=== PATIENT | male | born 1945 | race Caucasian/White ===

== ENCOUNTER 2019-11-01 20:32 | Emergency (ER) | payer BC ==
[~2019-11-01] VITALS: Ht 172.7 cm; Wt 78.9 kg
[2019-11-01 20:46] VITALS: BP_SYST 147
--- NOTE | 2019-11-01 20:50 | NUR ---
Patient triaged and placed in waiting room. VSS and patient appears in no acute distress at this time. Accompanied by , awaiting available bed, and MD notified of need for MSE.
--- NOTE | 2019-11-01 20:53 | NUR ---
ER Dr. FELDER at bedside examining patient.
--- NOTE | 2019-11-01 23:00 | NUR ---
PT A&O X4 C/O OF RIGHT WRIST PAIN AND SWELLING AFTER FALLING BACK ONTO HIS WRIST EARLIER THIS MORNING AT 0830. PT STATES HE WAS GARDENING AND PULLED SOME WEEDS WHEN HE PULLED HARD AND FELL BACKWARDS ONTO HIS WRIST. PT DENIES HITTING HIS HEAD OR LOC. PT RATES PAIN 10/.
[2019-11-01] MEDS ORDERED: IBUPROFEN 800 MG TABLET PO ONE (23:15)
[2019-11-01] MEDS ORDERED: HYDROcodone/ACETAMIN 5-325 MG TAB (NORCO/ VICODIN) PO ONE (23:15)
--- NOTE | 2019-11-01 23:18 | NUR ---
PT MEDICATED PER MD ORDERS. PT TOLERATED MEDICATIONS WELL.
[2019-11-01 23:39] VITALS: BP_SYST 147
--- NOTE | 2019-11-01 23:39 | NUR ---
Patient given written and verbal discharge instructions and verbalizes understanding. ER MD discussed with patient the results and treatment provided. Patient in stable condition. ID arm band removed. Rx of motrin and norco 5-325 given. Patient educated on pain management and to follow up with PMD. Pain Scale 5/10. Opportunity for questions provided and answered. Medication side effect fact sheet provided.
== END 2019-11-01 23:39 | disposition home or self-care (01) ==
LOC: EDBD 20:32 → SED 20:32
DX: S52.501A Unspecified fracture of the lower end of right radius, initial encounter for closed fracture (principal); S52.611A Displaced fracture of right ulna styloid process, initial encounter for closed fracture; W18.39XA Other fall on same level, initial encounter; Y93.89 Activity, other specified; Y92.89 Other specified places as the place of occurrence of the external cause; Y99.8 Other external cause status
CPT/HCPCS: 73090; 99284

== ENCOUNTER 2020-01-04 20:12 | Emergency (ER) | payer BC ==
[~2020-01-04] VITALS: Ht 175.3 cm; Wt 77.1 kg
[2020-01-04 20:31] VITALS: BP_SYST 155
[2020-01-04] MEDS ORDERED: IBUPROFEN 400 MG TABLET PO ONE (21:00)
[2020-01-04 22:23] VITALS: BP_SYST 155
== END 2020-01-04 22:23 | disposition home or self-care (01) ==
LOC: SED 20:12
DX: S52.592A Other fractures of lower end of left radius, initial encounter for closed fracture (principal); Z87.442 Personal history of urinary calculi; Z71.6 Tobacco abuse counseling; W01.0XXA Fall on same level from slipping, tripping and stumbling without subsequent striking against object, initial encounter; Y93.89 Activity, other specified; Y92.89 Other specified places as the place of occurrence of the external cause; Y99.8 Other external cause status
CPT/HCPCS: 99283

== ENCOUNTER 2022-10-01 20:25 | Inpatient (IN) | payer BC, OTHER ==
[~2022-10-01] VITALS: Ht 175.3 cm; Wt 77.1 kg
[2022-10-01 20:30] VITALS: BP_SYST 120; PULSE 84; RESP 19; TEMP 98.8; O2SAT 96
[2022-10-01] MEDS ORDERED: NACL 0.9% 1,000 ML IV ONE (20:45)
[2022-10-01 21:41] LABS: BASOPHILS # (AUTO) 0.1 K/uL (0.0-0.2); BASOPHILS % (AUTO) 0.9 % (0.0-2.0); EOSINOPHILS # (AUTO) 0.1 K/uL (0.0-0.4); EOSINOPHILS % (AUTO) 0.8 % (0.0-4.0); HEMATOCRIT 36.8 % (36-54); HEMOGLOBIN 12.1 g/dL (14.0-18.0); LYMPHOCYTES # (AUTO) 1.8 K/uL (1.0-5.5); LYMPHOCYTES % (AUTO) 18.9 % (20.5-51.5); MEAN CORPUSCULAR HEMOGLOBIN 34 pg (27-31); MEAN CORPUSCULAR HGB CONC 33 % (32-36); MEAN CORPUSCULAR VOLUME 103 fL (79.0-98.0); MONOCYTES # (AUTO) 1.7 K/uL (0.0-1.0); MONOCYTES % (AUTO) 18.5 % (1.7-9.3); NEUTROPHILS # (AUTO) 5.7 K/uL (1.8-7.7); NEUTROPHILS % (AUTO) 60.9 % (40.0-70.0); PLATELET COUNT (AUTO) 221 K/uL (130-430); RED BLOOD CELL COUNT(AUTO) 3.57 MIL/uL (4.2-6.2); RED CELL DISTRIBUTION WIDTH 16.8 % (9.0-15.0); WHITE BLOOD COUNT (AUTO) 9.3 K/uL (4.8-10.8)
[2022-10-01 21:53] LABS: INR 1.2 (0.80-1.20); PROTHROMBIN TIME 12.1 SECS (9.5-12.5)
[2022-10-01 21:54] LABS: ALANINE AMINOTRANSFERASE 24 U/L (12-78); ALBUMIN 2.4 g/dL (3.4-4.8); ANION GAP 4 (5-15); ASPARTATE AMINOTRANSFERASE 60 U/L (10-37); CALCIUM 11.1 mg/dL (8.4-11.0); CARBON DIOXIDE 35 mmol/L (23-29); CHLORIDE 100 mmol/L (98-107); CREATININE 2.05 mg/dL (0.55-1.30); GLUCOSE 121 mg/dL (74-106); SODIUM SERUM 139 mmol/L (136-145); TOTAL BILIRUBIN 0.6 mg/dL (0.0-1.0); TOTAL PROTEIN, SERUM 5.8 g/dL (6.4-8.3); UREA NITROGEN, BLOOD 26 mg/dL (8-21)
[2022-10-01 21:56] LABS: CREATINE KINASE, TOTAL 803 U/L (39-308); LIPASE 56 U/L (73-393)
[2022-10-01 21:59] LABS: ALCOHOL, BLOOD < 3 mg/dL (<10)
[2022-10-01] MEDS ORDERED: iohexoL 350 mgI/mL, 100 ML INFUS..BTL IV ONE (22:14)
[2022-10-01 22:23] LABS: CKMB RELATIVE INDEX 0.2 (0.0-2.9); CREATINE KINASE MB 1.9 ng/mL (0-3.6)
[2022-10-01 22:39] LABS: BILIRUBIN,URINE NEGATIVE (NEGATIVE); BLOOD, URINE 2+ (NEGATIVE); COLOR,URINE YELLOW (YELLOW); GLUCOSE,URINE NEGATIVE (NEGATIVE); KETONES,URINE NEGATIVE (NEGATIVE); LEUKOCYTE ESTERASE ,URINE NEGATIVE (NEGATIVE); NITRITE, URINE NEGATIVE (NEGATIVE); PH,URINE 6.5 (5.0-8.0); PROTEIN URINE TRACE (NEGATIVE); UROBILINOGEN,URINE 0.2 (0.2-1.0)
[2022-10-01 22:43] LABS: CLARITY/URINE SLIGHTLY CLOUDY (CLEAR)
[2022-10-01 23:04] LABS: BARBITURATE, URINE NEGATIVE (NEG <=200); BENZODIAZEPINE, URINE NEGATIVE (NEG <=150); CANNABINOID, URINE NEGATIVE (NEG <=50); COCAINE, URINE NEGATIVE (NEG <=150); METHAMPHETAMINES SCREEN,URINE NEGATIVE (NEG <=500); OPIATE, URINE NEGATIVE (NEG <=100); PHENCYCLIDINE SCREEN,URINE NEGATIVE (NEG <=25); UR TRICYCLIC ANTIDEPRESSANTS NEGATIVE (NEG <=300); URINE AMPHETAMINE NEGATIVE (NEG <=500); URINE METHADONE NEGATIVE (NEG <=200); URINE OXYCODONE SCREEN NEGATIVE (NEG <=100); URINE PROPOXYPHENE SCREEN NEGATIVE (NEG <=300)
[2022-10-01 23:33] LABS: BACTERIA,URINE FEW /HPF (None Seen); WBC,URINE 0-3 /HPF (0-3)
[2022-10-02] VITALS (7 sets, daily range): BP systolic 124–156; PULSE 84–98; RESP 15–20; TEMP 96.4–97.7; O2SAT 92–98
[2022-10-02] MEDS ORDERED: ONDANSETRON HCL 4 MG/2 ML VIAL IVP PRN (10:30)
[2022-10-02] MEDS ORDERED: HYDROcodone/ACETAMIN 10-325 MG TAB PO PRN (10:30)
[2022-10-02] MEDS ORDERED: ACETAMINOPHEN 325 MG TABLET PO PRN ×2 (10:30→10:45)
[2022-10-02] MEDS ORDERED: NALOXONE HCL 0.4 MG/ML AMP (NARCAN) IVP PRN ×2 (10:30)
[2022-10-02] MEDS ORDERED: HYDROcodone/ACETAMIN 5-325 MG TAB (NORCO/ VICODIN) PO PRN (10:30)
[2022-10-02] MEDS: D5/0.45 NS 1,000 ML IV SCH ×3 (10:41→23:31)
[2022-10-02] MEDS: LORazepam 2 MG/ML VIAL IVP PRN (10:48)
[2022-10-02] MEDS: cefTRIAXone 1 GM IVPB PREMIX 50 ML IV SCH (11:58)
[2022-10-02] MEDS: QUEtiapine FUMARATE 25 MG TABLET PO SCH (21:21)
[2022-10-03 01:19] VITALS: BP_SYST 120; PULSE 101; RESP 20; TEMP 97.1; O2SAT 93
[2022-10-03 06:23] LABS: BASOPHILS # (AUTO) 0.1 K/uL (0.0-0.2); BASOPHILS % (AUTO) 0.9 % (0.0-2.0); EOSINOPHILS # (AUTO) 0.2 K/uL (0.0-0.4); EOSINOPHILS % (AUTO) 1.7 % (0.0-4.0); HEMATOCRIT 37.4 % (36-54); HEMOGLOBIN 12.3 g/dL (14.0-18.0); LYMPHOCYTES # (AUTO) 2.6 K/uL (1.0-5.5); LYMPHOCYTES % (AUTO) 28.6 % (20.5-51.5); MEAN CORPUSCULAR HEMOGLOBIN 34 pg (27-31); MEAN CORPUSCULAR HGB CONC 33 % (32-36); MEAN CORPUSCULAR VOLUME 103 fL (79.0-98.0); MONOCYTES # (AUTO) 1.7 K/uL (0.0-1.0); MONOCYTES % (AUTO) 18.1 % (1.7-9.3); NEUTROPHILS # (AUTO) 4.7 K/uL (1.8-7.7); NEUTROPHILS % (AUTO) 50.7 % (40.0-70.0); PLATELET COUNT (AUTO) 192 K/uL (130-430); RED BLOOD CELL COUNT(AUTO) 3.63 MIL/uL (4.2-6.2); RED CELL DISTRIBUTION WIDTH 16.8 % (9.0-15.0); WHITE BLOOD COUNT (AUTO) 9.2 K/uL (4.8-10.8)
[2022-10-03 07:07] LABS: ANION GAP 7 (5-15); CALCIUM 10.1 mg/dL (8.4-11.0); CARBON DIOXIDE 30 mmol/L (23-29); CHLORIDE 107 mmol/L (98-107); CREATININE 1.72 mg/dL (0.55-1.30); GLUCOSE 88 mg/dL (74-106); PHOSPHORUS 3.2 mg/dL (2.7-4.5); POTASSIUM 3.3 mmol/L (3.5-5.1); SODIUM SERUM 144 mmol/L (136-145); UREA NITROGEN, BLOOD 22 mg/dL (8-21)
[2022-10-03 08:08] VITALS: BP_SYST 161; PULSE 93; RESP 14; TEMP 98.2; O2SAT 94
[2022-10-03] MEDS: QUEtiapine FUMARATE 25 MG TABLET PO SCH ×2 (08:21→20:39)
[2022-10-03 09:40] VITALS: O2SAT 97
[2022-10-03] MEDS ORDERED: POTASSIUM CHLORIDE 20 MEQ TAB.PRT.SR PO ONE (10:45)
[2022-10-03 11:50] VITALS: BP_SYST 126; PULSE 95; RESP 14; TEMP 97.1; O2SAT 95
[2022-10-03] MEDS: cefTRIAXone 1 GM IVPB PREMIX 50 ML IV SCH (13:34)
[2022-10-03] MEDS: LORazepam 2 MG/ML VIAL IVP PRN (13:47)
[2022-10-03] MEDS ORDERED: POTASSIUM CHLORIDE 40 MEQ in NS 250 ML IV ONE (14:30)
[2022-10-03 16:30] VITALS: BP_SYST 126; PULSE 92; RESP 18; TEMP 98; O2SAT 94
[2022-10-03] MEDS: D5/0.45 NS 1,000 ML IV SCH ×2 (16:45→20:39)
[2022-10-03 20:30] VITALS: BP_SYST 144; PULSE 85; RESP 20; TEMP 98.2; O2SAT 96
[2022-10-04] VITALS (7 sets, daily range): BP systolic 130–154; PULSE 92–111; RESP 16–22; TEMP 96.4–98.3; O2SAT 92–96
[2022-10-04 05:28] LABS: ERYTHROCYTE SEDIMENTATION RATE 15 MM/HR (0-15)
[2022-10-04 05:33] LABS: BASOPHILS # (AUTO) 0.1 K/uL (0.0-0.2); BASOPHILS % (AUTO) 1.1 % (0.0-2.0); EOSINOPHILS # (AUTO) 0.2 K/uL (0.0-0.4); EOSINOPHILS % (AUTO) 2.2 % (0.0-4.0); HEMATOCRIT 37.6 % (36-54); HEMOGLOBIN 12.5 g/dL (14.0-18.0); LYMPHOCYTES % (AUTO) 25.3 % (20.5-51.5); MEAN CORPUSCULAR HEMOGLOBIN 34 pg (27-31); MEAN CORPUSCULAR HGB CONC 33 % (32-36); MEAN CORPUSCULAR VOLUME 103 fL (79.0-98.0); MONOCYTES # (AUTO) 1.3 K/uL (0.0-1.0); NEUTROPHILS # (AUTO) 4.3 K/uL (1.8-7.7); NEUTROPHILS % (AUTO) 54.4 % (40.0-70.0); PLATELET COUNT (AUTO) 177 K/uL (130-430); RED BLOOD CELL COUNT(AUTO) 3.65 MIL/uL (4.2-6.2); RED CELL DISTRIBUTION WIDTH 17.1 % (9.0-15.0); WHITE BLOOD COUNT (AUTO) 7.9 K/uL (4.8-10.8)
[2022-10-04 06:11] LABS: ALANINE AMINOTRANSFERASE 24 U/L (12-78); ALBUMIN 2.3 g/dL (3.4-4.8); ANION GAP 7 (5-15); ASPARTATE AMINOTRANSFERASE 48 U/L (10-37); CALCIUM 9.1 mg/dL (8.4-11.0); CARBON DIOXIDE 30 mmol/L (23-29); CHLORIDE 108 mmol/L (98-107); CREATININE 1.54 mg/dL (0.55-1.30); GLUCOSE 107 mg/dL (74-106); PHOSPHORUS 3.7 mg/dL (2.7-4.5); POTASSIUM 3.3 mmol/L (3.5-5.1); SODIUM SERUM 145 mmol/L (136-145); TOTAL BILIRUBIN 0.7 mg/dL (0.0-1.0); TOTAL PROTEIN, SERUM 5.9 g/dL (6.4-8.3); UREA NITROGEN, BLOOD 17 mg/dL (8-21)
[2022-10-04] MEDS: QUEtiapine FUMARATE 25 MG TABLET PO SCH (09:45)
[2022-10-04] MEDS: cefTRIAXone 1 GM IVPB PREMIX 50 ML IV SCH (12:15)
[2022-10-04] MEDS ORDERED: POTASSIUM CHLORIDE 20 MEQ/PKT PACKET PO ONE (13:00)
[2022-10-04] MEDS: D5/0.45 NS 1,000 ML IV SCH ×2 (14:49→23:58)
[2022-10-04] MEDS: PIPERACILLIN/TAZO 3.375/DEX-IS 50 ML IV SCH ×2 (14:50→21:05)
[2022-10-04] MEDS: LORazepam 2 MG/ML VIAL IVP SCH (23:55)
[2022-10-05] VITALS (7 sets, daily range): BP systolic 110–142; PULSE 80–106; RESP 20–22; TEMP 96.6–98.1; O2SAT 90–100
[2022-10-05 05:12] LABS: BASOPHILS # (AUTO) 0.1 K/uL (0.0-0.2); BASOPHILS % (AUTO) 0.8 % (0.0-2.0); EOSINOPHILS # (AUTO) 0.2 K/uL (0.0-0.4); EOSINOPHILS % (AUTO) 1.5 % (0.0-4.0); HEMATOCRIT 38.3 % (36-54); HEMOGLOBIN 12.6 g/dL (14.0-18.0); LYMPHOCYTES # (AUTO) 2.2 K/uL (1.0-5.5); MEAN CORPUSCULAR HEMOGLOBIN 34 pg (27-31); MEAN CORPUSCULAR HGB CONC 33 % (32-36); MEAN CORPUSCULAR VOLUME 103 fL (79.0-98.0); MONOCYTES # (AUTO) 1.8 K/uL (0.0-1.0); MONOCYTES % (AUTO) 15.3 % (1.7-9.3); NEUTROPHILS # (AUTO) 7.4 K/uL (1.8-7.7); NEUTROPHILS % (AUTO) 63.4 % (40.0-70.0); PLATELET COUNT (AUTO) 165 K/uL (130-430); WHITE BLOOD COUNT (AUTO) 11.7 K/uL (4.8-10.8)
[2022-10-05 06:01] LABS: CALCIUM 8.9 mg/dL (8.4-11.0); CARBON DIOXIDE 31 mmol/L (23-29); CREATININE 1.65 mg/dL (0.55-1.30); GLUCOSE 119 mg/dL (74-106); UREA NITROGEN, BLOOD 14 mg/dL (8-21)
[2022-10-05] MEDS: PIPERACILLIN/TAZO 3.375/DEX-IS 50 ML IV SCH ×3 (06:01→21:18)
[2022-10-05 06:41] LABS: ANION GAP 5 (5-15); CHLORIDE 108 mmol/L (98-107); POTASSIUM 4.3 mmol/L (3.5-5.1); SODIUM SERUM 144 mmol/L (136-145)
[2022-10-05] MEDS: D5/0.45 NS 1,000 ML IV SCH ×2 (11:27→20:04)
[2022-10-05 14:34] LABS: BLOOD GAS PH 7.388 (7.350-7.450)
[2022-10-05 14:35] LABS: ABG O2 SAT% ESTIMATE 92.6 % (94.0-100.0); ALLEN'S TEST POSITIVE (P); BLOOD GAS BASE EXCESS 1.6 mmol/L (-3.0-3.0); BLOOD GAS HCO3 27.2 mmol/L (21.0-27.0); BLOOD GAS PCO2 46.2 mmHg (32.0-45.0); BLOOD GAS PO2 65.6 mmHg (75.0-100.0)
[2022-10-05] MEDS: NYSTATIN 15 GM TOPICAL POWDER TP SCH (21:49)
[2022-10-05] MEDS: LORazepam 2 MG/ML VIAL IVP SCH (21:50)
[2022-10-06] VITALS (12 sets, daily range): BP systolic 108–159; PULSE 83–103; RESP 16–20; TEMP 96.5–97.6; O2SAT 93–98
[2022-10-06 05:04] LABS: BASOPHILS # (AUTO) 0.1 K/uL (0.0-0.2); EOSINOPHILS # (AUTO) 0.3 K/uL (0.0-0.4); EOSINOPHILS % (AUTO) 2.5 % (0.0-4.0); HEMATOCRIT 38.6 % (36-54); HEMOGLOBIN 12.5 g/dL (14.0-18.0); LYMPHOCYTES # (AUTO) 2.3 K/uL (1.0-5.5); LYMPHOCYTES % (AUTO) 20.6 % (20.5-51.5); MEAN CORPUSCULAR HEMOGLOBIN 33 pg (27-31); MEAN CORPUSCULAR HGB CONC 32 % (32-36); MEAN CORPUSCULAR VOLUME 103 fL (79.0-98.0); MONOCYTES # (AUTO) 1.4 K/uL (0.0-1.0); MONOCYTES % (AUTO) 12.5 % (1.7-9.3); NEUTROPHILS # (AUTO) 6.9 K/uL (1.8-7.7); NEUTROPHILS % (AUTO) 63.4 % (40.0-70.0); PLATELET COUNT (AUTO) 169 K/uL (130-430); RED BLOOD CELL COUNT(AUTO) 3.74 MIL/uL (4.2-6.2); RED CELL DISTRIBUTION WIDTH 17.2 % (9.0-15.0)
[2022-10-06 05:30] LABS: CALCIUM 8.2 mg/dL (8.4-11.0); CARBON DIOXIDE 30 mmol/L (23-29); CREATININE 1.52 mg/dL (0.55-1.30); GLUCOSE 108 mg/dL (74-106); UREA NITROGEN, BLOOD 10 mg/dL (8-21)
[2022-10-06 05:37] LABS: ANION GAP 7 (5-15); CHLORIDE 105 mmol/L (98-107); POTASSIUM 3.3 mmol/L (3.5-5.1); SODIUM SERUM 142 mmol/L (136-145)
[2022-10-06] MEDS: PIPERACILLIN/TAZO 3.375/DEX-IS 50 ML IV SCH ×3 (06:07→22:43)
[2022-10-06] MEDS: D5/0.45 NS 1,000 ML IV SCH ×2 (06:09→14:00)
[2022-10-06] MEDS: LEVOTHYROXINE SODIUM 0.05 MG TABLET PO SCH (06:17)
[2022-10-06] MEDS: predniSONE 5 MG TABLET PO SCH (10:11)
[2022-10-06] MEDS: NYSTATIN 15 GM TOPICAL POWDER TP SCH ×2 (10:11→22:43)
[2022-10-06] MEDS ORDERED: QUEtiapine FUMARATE 25 MG TABLET PO ONE (10:15)
[2022-10-06] MEDS: ACYCLOVIR IV 500 MG in D5W 100 ML IV SCH (15:21)
[2022-10-06 16:03] LABS: ABG O2 SAT% ESTIMATE 97.2 % (94.0-100.0); BLOOD GAS BASE EXCESS 2.5 mmol/L (-3.0-3.0); BLOOD GAS HCO3 26.7 mmol/L (21.0-27.0); BLOOD GAS PCO2 39.8 mmHg (32.0-45.0); BLOOD GAS PH 7.444 (7.350-7.450)
[2022-10-06] MEDS ORDERED: QUEtiapine FUMARATE 25 MG TABLET PO SCH ×2 (21:00)
[2022-10-07] VITALS (8 sets, daily range): BP systolic 123–155; PULSE 94–110; RESP 16–22; TEMP 96.8–98.4; O2SAT 93–100
[2022-10-07] MEDS: LORazepam 2 MG/ML VIAL IVP SCH ×2 (00:02→21:17)
[2022-10-07] MEDS: ACYCLOVIR IV 500 MG in D5W 100 ML IV SCH ×2 (02:14→15:28)
[2022-10-07] MEDS: D5/0.45 NS 1,000 ML IV SCH ×3 (02:18→16:04)
[2022-10-07] MEDS: LEVOTHYROXINE SODIUM 0.05 MG TABLET PO SCH (05:52)
[2022-10-07] MEDS: PIPERACILLIN/TAZO 3.375/DEX-IS 50 ML IV SCH ×3 (05:54→21:16)
[2022-10-07] MEDS: predniSONE 5 MG TABLET PO SCH (09:00)
[2022-10-07] MEDS: NYSTATIN 15 GM TOPICAL POWDER TP SCH ×2 (10:01→21:17)
[2022-10-07 11:28] LABS: ABG O2 SAT% ESTIMATE 97.4 % (94.0-100.0); BLOOD GAS BASE EXCESS 1.3 mmol/L (-3.0-3.0); BLOOD GAS HCO3 25.8 mmol/L (21.0-27.0); BLOOD GAS PCO2 40.5 mmHg (32.0-45.0); BLOOD GAS PH 7.422 (7.350-7.450); BLOOD GAS PO2 95.6 mmHg (75.0-100.0)
[2022-10-07] MEDS ORDERED: THIAMINE HCL 100 MG in NS 50 ML IV ONE (16:15)
[2022-10-07] MEDS: QUEtiapine FUMARATE 100 MG TABLET PO SCH (21:16)
[2022-10-08 00:28] VITALS: BP_SYST 146; PULSE 93; RESP 12; TEMP 97.4; O2SAT 96
[2022-10-08] MEDS: ACYCLOVIR IV 500 MG in D5W 100 ML IV SCH ×2 (02:15→14:07)
[2022-10-08] MEDS: PIPERACILLIN/TAZO 3.375/DEX-IS 50 ML IV SCH ×3 (05:33→20:59)
[2022-10-08] MEDS: D5/0.45 NS 1,000 ML IV SCH ×2 (05:33→17:12)
[2022-10-08 06:12] LABS: BASOPHILS # (AUTO) 0.1 K/uL (0.0-0.2); BASOPHILS % (AUTO) 0.9 % (0.0-2.0); EOSINOPHILS # (AUTO) 0.3 K/uL (0.0-0.4); HEMATOCRIT 36.8 % (36-54); HEMOGLOBIN 11.8 g/dL (14.0-18.0); LYMPHOCYTES # (AUTO) 2.6 K/uL (1.0-5.5); LYMPHOCYTES % (AUTO) 20.2 % (20.5-51.5); MEAN CORPUSCULAR HEMOGLOBIN 33 pg (27-31); MEAN CORPUSCULAR HGB CONC 32 % (32-36); MEAN CORPUSCULAR VOLUME 103 fL (79.0-98.0); MONOCYTES # (AUTO) 1.4 K/uL (0.0-1.0); NEUTROPHILS # (AUTO) 8.4 K/uL (1.8-7.7); NEUTROPHILS % (AUTO) 65.9 % (40.0-70.0); PLATELET COUNT (AUTO) 159 K/uL (130-430); RED BLOOD CELL COUNT(AUTO) 3.56 MIL/uL (4.2-6.2); RED CELL DISTRIBUTION WIDTH 16.7 % (9.0-15.0); WHITE BLOOD COUNT (AUTO) 12.8 K/uL (4.8-10.8)
[2022-10-08] MEDS: LEVOTHYROXINE SODIUM 0.05 MG TABLET PO SCH (06:13)
[2022-10-08 06:21] LABS: ANION GAP 5 (5-15); CALCIUM 8.2 mg/dL (8.4-11.0); CARBON DIOXIDE 31 mmol/L (23-29); CHLORIDE 107 mmol/L (98-107); CREATININE 1.47 mg/dL (0.55-1.30); GLUCOSE 118 mg/dL (74-106); POTASSIUM 3.9 mmol/L (3.5-5.1); SODIUM SERUM 143 mmol/L (136-145); UREA NITROGEN, BLOOD 10 mg/dL (8-21)
[2022-10-08 07:45] VITALS: BP_SYST 144; RESP 20; O2SAT 94
[2022-10-08] MEDS: QUEtiapine FUMARATE 100 MG TABLET PO SCH (08:46)
[2022-10-08] MEDS: predniSONE 5 MG TABLET PO SCH (08:46)
[2022-10-08] MEDS: NYSTATIN 15 GM TOPICAL POWDER TP SCH ×2 (08:46→20:58)
[2022-10-08 09:36] VITALS: O2SAT 94
[2022-10-08 11:30] VITALS: BP_SYST 133; PULSE 105; RESP 17; TEMP 98.9; O2SAT 97
[2022-10-08 16:33] VITALS: BP_SYST 151; PULSE 116; RESP 18; TEMP 99.1; O2SAT 96
[2022-10-08 20:00] VITALS: BP_SYST 132; PULSE 86; RESP 18; TEMP 97; O2SAT 97
[2022-10-08] MEDS: QUEtiapine FUMARATE 25 MG TABLET PO SCH (20:58)
[2022-10-08] MEDS: LORazepam 2 MG/ML VIAL IVP SCH (20:58)
[2022-10-09] VITALS (7 sets, daily range): BP systolic 109–138; PULSE 88–109; RESP 16–18; TEMP 96.5–98.4; O2SAT 92–100
[2022-10-09] MEDS: ACYCLOVIR IV 500 MG in D5W 100 ML IV SCH ×2 (01:43→13:29)
[2022-10-09] MEDS: D5/0.45 NS 1,000 ML IV SCH ×2 (01:43→12:34)
[2022-10-09] MEDS: LEVOTHYROXINE SODIUM 0.05 MG TABLET PO SCH (06:07)
[2022-10-09] MEDS: PIPERACILLIN/TAZO 3.375/DEX-IS 50 ML IV SCH ×3 (06:07→22:18)
[2022-10-09 08:06] LABS: FOLATE (FOLIC ACID) 4.8 ng/mL (>3.0)
[2022-10-09] MEDS: predniSONE 5 MG TABLET PO SCH (08:24)
[2022-10-09] MEDS: QUEtiapine FUMARATE 25 MG TABLET PO SCH ×2 (08:24→20:37)
[2022-10-09] MEDS: NYSTATIN 15 GM TOPICAL POWDER TP SCH ×2 (08:32→20:36)
[2022-10-09] MEDS: LORazepam 2 MG/ML VIAL IVP SCH (22:17)
[2022-10-10] VITALS (7 sets, daily range): BP systolic 120–150; PULSE 87–98; RESP 14–20; TEMP 97–98.4; O2SAT 96–99
[2022-10-10] MEDS: D5/0.45 NS 1,000 ML IV SCH ×3 (01:32→21:54)
[2022-10-10] MEDS: ACYCLOVIR IV 500 MG in D5W 100 ML IV SCH ×2 (02:14→15:53)
[2022-10-10 05:14] LABS: BASOPHILS # (AUTO) 0.1 K/uL (0.0-0.2); EOSINOPHILS # (AUTO) 0.1 K/uL (0.0-0.4); EOSINOPHILS % (AUTO) 0.9 % (0.0-4.0); HEMATOCRIT 33.7 % (36-54); HEMOGLOBIN 11.4 g/dL (14.0-18.0); LYMPHOCYTES # (AUTO) 2.2 K/uL (1.0-5.5); LYMPHOCYTES % (AUTO) 22.6 % (20.5-51.5); MEAN CORPUSCULAR HEMOGLOBIN 35 pg (27-31); MEAN CORPUSCULAR HGB CONC 34 % (32-36); MEAN CORPUSCULAR VOLUME 102 fL (79.0-98.0); NEUTROPHILS # (AUTO) 6.5 K/uL (1.8-7.7); NEUTROPHILS % (AUTO) 65.5 % (40.0-70.0); PLATELET COUNT (AUTO) 116 K/uL (130-430); RED CELL DISTRIBUTION WIDTH 16.2 % (9.0-15.0); WHITE BLOOD COUNT (AUTO) 9.9 K/uL (4.8-10.8)
[2022-10-10] MEDS: PIPERACILLIN/TAZO 3.375/DEX-IS 50 ML IV SCH ×3 (05:35→21:54)
[2022-10-10 05:50] LABS: ANION GAP 7 (5-15); CALCIUM 8.1 mg/dL (8.4-11.0); CARBON DIOXIDE 30 mmol/L (23-29); CHLORIDE 112 mmol/L (98-107); CREATININE 1.47 mg/dL (0.55-1.30); GLUCOSE 114 mg/dL (74-106); PHOSPHORUS 2.9 mg/dL (2.7-4.5); POTASSIUM 3.1 mmol/L (3.5-5.1); SODIUM SERUM 149 mmol/L (136-145); UREA NITROGEN, BLOOD 8 mg/dL (8-21)
[2022-10-10 06:07] LABS: ERYTHROCYTE SEDIMENTATION RATE 33 MM/HR (0-15)
[2022-10-10] MEDS: LEVOTHYROXINE SODIUM 0.05 MG TABLET PO SCH (06:27)
[2022-10-10] MEDS: NYSTATIN 15 GM TOPICAL POWDER TP SCH ×2 (09:29→21:38)
[2022-10-10] MEDS: predniSONE 5 MG TABLET PO SCH (09:29)
[2022-10-10] MEDS: QUEtiapine FUMARATE 25 MG TABLET PO SCH ×2 (09:29→21:00)
[2022-10-10] MEDS ORDERED: POTASSIUM CHLORIDE 20 MEQ TAB.PRT.SR PO ONE (12:30)
[2022-10-10] MEDS: LORazepam 2 MG/ML VIAL IVP SCH (21:53)
[2022-10-11 00:14] VITALS: BP_SYST 136; PULSE 100; RESP 20; TEMP 98.9; O2SAT 95
[2022-10-11] MEDS: ACYCLOVIR IV 500 MG in D5W 100 ML IV SCH ×2 (01:59→13:21)
[2022-10-11] MEDS: D5/0.45 NS 1,000 ML IV SCH ×3 (04:45→23:24)
[2022-10-11 05:04] LABS: BASOPHILS # (AUTO) 0.1 K/uL (0.0-0.2); BASOPHILS % (AUTO) 1.1 % (0.0-2.0); EOSINOPHILS # (AUTO) 0.1 K/uL (0.0-0.4); EOSINOPHILS % (AUTO) 1.2 % (0.0-4.0); HEMATOCRIT 35.5 % (36-54); HEMOGLOBIN 11.8 g/dL (14.0-18.0); LYMPHOCYTES # (AUTO) 2.5 K/uL (1.0-5.5); LYMPHOCYTES % (AUTO) 21.8 % (20.5-51.5); MEAN CORPUSCULAR HEMOGLOBIN 34 pg (27-31); MEAN CORPUSCULAR HGB CONC 33 % (32-36); MEAN CORPUSCULAR VOLUME 103 fL (79.0-98.0); MONOCYTES # (AUTO) 1.3 K/uL (0.0-1.0); MONOCYTES % (AUTO) 11.1 % (1.7-9.3); NEUTROPHILS # (AUTO) 7.5 K/uL (1.8-7.7); NEUTROPHILS % (AUTO) 64.8 % (40.0-70.0); PLATELET COUNT (AUTO) 118 K/uL (130-430); RED BLOOD CELL COUNT(AUTO) 3.45 MIL/uL (4.2-6.2); RED CELL DISTRIBUTION WIDTH 16.3 % (9.0-15.0); WHITE BLOOD COUNT (AUTO) 11.6 K/uL (4.8-10.8)
[2022-10-11 05:20] LABS: ERYTHROCYTE SEDIMENTATION RATE 23 MM/HR (0-15)
[2022-10-11] MEDS: PIPERACILLIN/TAZO 3.375/DEX-IS 50 ML IV SCH ×3 (06:19→21:21)
[2022-10-11] MEDS: LEVOTHYROXINE SODIUM 0.05 MG TABLET PO SCH (06:20)
[2022-10-11 06:29] LABS: ALANINE AMINOTRANSFERASE 32 U/L (12-78); ALBUMIN 2.2 g/dL (3.4-4.8); ANION GAP 4 (5-15); ASPARTATE AMINOTRANSFERASE 59 U/L (10-37); CALCIUM 7.9 mg/dL (8.4-11.0); CARBON DIOXIDE 31 mmol/L (23-29); CHLORIDE 108 mmol/L (98-107); CREATININE 1.38 mg/dL (0.55-1.30); GLUCOSE 102 mg/dL (74-106); POTASSIUM 3.2 mmol/L (3.5-5.1); SODIUM SERUM 143 mmol/L (136-145); TOTAL BILIRUBIN 0.9 mg/dL (0.0-1.0); TOTAL PROTEIN, SERUM 5.9 g/dL (6.4-8.3); UREA NITROGEN, BLOOD 10 mg/dL (8-21)
[2022-10-11 08:08] VITALS: O2SAT 96
[2022-10-11] MEDS: predniSONE 5 MG TABLET PO SCH (09:00)
[2022-10-11] MEDS: QUEtiapine FUMARATE 25 MG TABLET PO SCH ×2 (09:00→21:20)
[2022-10-11] MEDS: NYSTATIN 15 GM TOPICAL POWDER TP SCH ×2 (09:32→21:22)
[2022-10-11 11:30] VITALS: BP_SYST 148; PULSE 106; RESP 20; TEMP 97.9; O2SAT 93
[2022-10-11] MEDS ORDERED: MAGNESIUM SULFATE 50 ML IV ONE (12:30)
[2022-10-11] MEDS ORDERED: MIDAZOLAM HCL 5 MG/5 ML VIAL ONE (12:58)
[2022-10-11] MEDS ORDERED: fentaNYL CITRATE/PF 100 MCG/2 ML AMP ONE (12:58)
[2022-10-11] MEDS ORDERED: LIDOCAINE 1%, 20 ML MDV 0 ML ONE (13:31)
[2022-10-11 17:30] VITALS: BP_SYST 124; PULSE 88; RESP 21; TEMP 98.4; O2SAT 97
[2022-10-11 20:00] VITALS: BP_SYST 138; PULSE 82; RESP 18; TEMP 96.8; O2SAT 97
[2022-10-11] MEDS: LORazepam 2 MG/ML VIAL IVP SCH (21:23)
[2022-10-12] VITALS (8 sets, daily range): BP systolic 107–143; PULSE 81–95; RESP 18–23; TEMP 96.7–98; O2SAT 92–100
[2022-10-12] MEDS: ACYCLOVIR IV 500 MG in D5W 100 ML IV SCH ×2 (02:58→14:00)
[2022-10-12 05:25] LABS: BASOPHILS # (AUTO) 0.1 K/uL (0.0-0.2); EOSINOPHILS # (AUTO) 0.1 K/uL (0.0-0.4); EOSINOPHILS % (AUTO) 1.3 % (0.0-4.0); HEMATOCRIT 34.8 % (36-54); HEMOGLOBIN 11.6 g/dL (14.0-18.0); LYMPHOCYTES # (AUTO) 2.1 K/uL (1.0-5.5); LYMPHOCYTES % (AUTO) 22.1 % (20.5-51.5); MEAN CORPUSCULAR HEMOGLOBIN 34 pg (27-31); MEAN CORPUSCULAR HGB CONC 33 % (32-36); MEAN CORPUSCULAR VOLUME 103 fL (79.0-98.0); MONOCYTES # (AUTO) 1.2 K/uL (0.0-1.0); MONOCYTES % (AUTO) 12.6 % (1.7-9.3); NEUTROPHILS # (AUTO) 5.9 K/uL (1.8-7.7); PLATELET COUNT (AUTO) 133 K/uL (130-430); RED BLOOD CELL COUNT(AUTO) 3.37 MIL/uL (4.2-6.2); RED CELL DISTRIBUTION WIDTH 16.2 % (9.0-15.0); WHITE BLOOD COUNT (AUTO) 9.3 K/uL (4.8-10.8)
[2022-10-12 05:43] LABS: ANION GAP 2 (5-15); CALCIUM 7.7 mg/dL (8.4-11.0); CARBON DIOXIDE 33 mmol/L (23-29); CHLORIDE 105 mmol/L (98-107); CREATININE 1.25 mg/dL (0.55-1.30); GLUCOSE 122 mg/dL (74-106); POTASSIUM 3.1 mmol/L (3.5-5.1); SODIUM SERUM 140 mmol/L (136-145); UREA NITROGEN, BLOOD 11 mg/dL (8-21)
[2022-10-12 05:46] LABS: ERYTHROCYTE SEDIMENTATION RATE 27 MM/HR (0-15)
[2022-10-12] MEDS: PIPERACILLIN/TAZO 3.375/DEX-IS 50 ML IV SCH ×3 (05:49→21:46)
[2022-10-12] MEDS: LEVOTHYROXINE SODIUM 0.05 MG TABLET PO SCH (06:40)
[2022-10-12] MEDS: NYSTATIN 15 GM TOPICAL POWDER TP SCH ×2 (09:00→20:33)
[2022-10-12] MEDS: predniSONE 5 MG TABLET PO SCH (09:00)
[2022-10-12] MEDS: QUEtiapine FUMARATE 25 MG TABLET PO SCH ×2 (09:00→20:33)
[2022-10-12] MEDS ORDERED: KCL 40 mEq in 100 mL (PREMIX) 100 ML IV ONE (09:15)
[2022-10-12] MEDS: D5/0.45 NS 1,000 ML IV SCH ×2 (10:45→20:33)
[2022-10-12] MEDS ORDERED: POTASSIUM CHLORIDE 40 MEQ in NS 250 ML IV ONE (11:00)
[2022-10-12] MEDS ORDERED: fentaNYL CITRATE/PF 100 MCG/2 ML AMP ONE (13:28)
[2022-10-12] MEDS ORDERED: MIDAZOLAM HCL 5 MG/5 ML VIAL ONE (13:28)
[2022-10-12] MEDS: LORazepam 2 MG/ML VIAL IVP SCH (20:33)
[2022-10-13] VITALS: BP_SYST 123; PULSE 83; RESP 18; TEMP 97.5; O2SAT 98
[2022-10-13] MEDS: ACYCLOVIR IV 500 MG in D5W 100 ML IV SCH ×2 (02:17→14:33)
[2022-10-13] MEDS: PIPERACILLIN/TAZO 3.375/DEX-IS 50 ML IV SCH ×3 (05:56→23:34)
[2022-10-13] MEDS: D5/0.45 NS 1,000 ML IV SCH ×2 (05:57→16:55)
[2022-10-13] MEDS: LEVOTHYROXINE SODIUM 0.05 MG TABLET PO SCH (06:27)
[2022-10-13 06:40] LABS: BASOPHILS # (AUTO) 0.1 K/uL (0.0-0.2); BASOPHILS % (AUTO) 0.7 % (0.0-2.0); EOSINOPHILS # (AUTO) 0.2 K/uL (0.0-0.4); EOSINOPHILS % (AUTO) 2.2 % (0.0-4.0); HEMATOCRIT 33.2 % (36-54); HEMOGLOBIN 11.4 g/dL (14.0-18.0); LYMPHOCYTES # (AUTO) 2.1 K/uL (1.0-5.5); LYMPHOCYTES % (AUTO) 22.4 % (20.5-51.5); MEAN CORPUSCULAR HEMOGLOBIN 35 pg (27-31); MEAN CORPUSCULAR HGB CONC 34 % (32-36); MEAN CORPUSCULAR VOLUME 102 fL (79.0-98.0); MONOCYTES # (AUTO) 1.1 K/uL (0.0-1.0); MONOCYTES % (AUTO) 11.5 % (1.7-9.3); NEUTROPHILS % (AUTO) 63.2 % (40.0-70.0); PLATELET COUNT (AUTO) 112 K/uL (130-430); RED BLOOD CELL COUNT(AUTO) 3.24 MIL/uL (4.2-6.2); RED CELL DISTRIBUTION WIDTH 16.8 % (9.0-15.0); WHITE BLOOD COUNT (AUTO) 9.5 K/uL (4.8-10.8)
[2022-10-13 07:30] VITALS: O2SAT 97
[2022-10-13 07:36] LABS: ALANINE AMINOTRANSFERASE 28 U/L (12-78); ALBUMIN 2.1 g/dL (3.4-4.8); ANION GAP 3 (5-15); ASPARTATE AMINOTRANSFERASE 55 U/L (10-37); CALCIUM 7.8 mg/dL (8.4-11.0); CARBON DIOXIDE 30 mmol/L (23-29); CHLORIDE 107 mmol/L (98-107); CREATININE 1.31 mg/dL (0.55-1.30); GLUCOSE 106 mg/dL (74-106); PHOSPHORUS 2.1 mg/dL (2.7-4.5); POTASSIUM 3.4 mmol/L (3.5-5.1); SODIUM SERUM 140 mmol/L (136-145); TOTAL BILIRUBIN 0.9 mg/dL (0.0-1.0); TOTAL PROTEIN, SERUM 5.8 g/dL (6.4-8.3); UREA NITROGEN, BLOOD 12 mg/dL (8-21)
[2022-10-13 07:57] LABS: ERYTHROCYTE SEDIMENTATION RATE 48 MM/HR (0-15)
[2022-10-13 08:04] VITALS: BP_SYST 133; PULSE 99; RESP 18; TEMP 97.9; O2SAT 97
[2022-10-13] MEDS: predniSONE 5 MG TABLET PO SCH (08:39)
[2022-10-13] MEDS: QUEtiapine FUMARATE 25 MG TABLET PO SCH ×2 (08:39→20:44)
[2022-10-13] MEDS: NYSTATIN 15 GM TOPICAL POWDER TP SCH ×2 (08:43→20:45)
[2022-10-13 11:30] VITALS: BP_SYST 116; PULSE 93; RESP 20; TEMP 98.6; O2SAT 96
[2022-10-13 16:30] VITALS: BP_SYST 123; PULSE 106; RESP 20; TEMP 98.1; O2SAT 95
[2022-10-13] MEDS ORDERED: K PHOS 30 MM in NS 250 ML IV ONE (19:00)
[2022-10-13] MEDS: LORazepam 2 MG/ML VIAL IVP SCH (20:45)
[2022-10-14] VITALS (7 sets, daily range): BP systolic 126–146; PULSE 86–104; RESP 18–20; TEMP 97–98.2; O2SAT 95–99
[2022-10-14] MEDS: ACYCLOVIR IV 500 MG in D5W 100 ML IV SCH ×2 (02:13→14:00)
[2022-10-14] MEDS: D5/0.45 NS 1,000 ML IV SCH ×2 (02:45→12:45)
[2022-10-14] MEDS: PIPERACILLIN/TAZO 3.375/DEX-IS 50 ML IV SCH (06:12)
[2022-10-14] MEDS: LEVOTHYROXINE SODIUM 0.05 MG TABLET PO SCH (06:12)
[2022-10-14 06:23] LABS: BASOPHILS # (AUTO) 0.1 K/uL (0.0-0.2); BASOPHILS % (AUTO) 0.7 % (0.0-2.0); EOSINOPHILS # (AUTO) 0.1 K/uL (0.0-0.4); EOSINOPHILS % (AUTO) 0.9 % (0.0-4.0); HEMATOCRIT 34.1 % (36-54); HEMOGLOBIN 11.1 g/dL (14.0-18.0); LYMPHOCYTES # (AUTO) 1.6 K/uL (1.0-5.5); LYMPHOCYTES % (AUTO) 18.6 % (20.5-51.5); MEAN CORPUSCULAR HEMOGLOBIN 34 pg (27-31); MEAN CORPUSCULAR HGB CONC 33 % (32-36); MEAN CORPUSCULAR VOLUME 105 fL (79.0-98.0); NEUTROPHILS # (AUTO) 5.7 K/uL (1.8-7.7); NEUTROPHILS % (AUTO) 67.8 % (40.0-70.0); PLATELET COUNT (AUTO) 136 K/uL (130-430); RED BLOOD CELL COUNT(AUTO) 3.25 MIL/uL (4.2-6.2); RED CELL DISTRIBUTION WIDTH 16.9 % (9.0-15.0); WHITE BLOOD COUNT (AUTO) 8.4 K/uL (4.8-10.8)
[2022-10-14 06:34] LABS: ERYTHROCYTE SEDIMENTATION RATE 43 MM/HR (0-15)
[2022-10-14 06:41] LABS: ANION GAP 7 (5-15); CALCIUM 7.7 mg/dL (8.4-11.0); CARBON DIOXIDE 30 mmol/L (23-29); CHLORIDE 107 mmol/L (98-107); CREATININE 1.27 mg/dL (0.55-1.30); GLUCOSE 94 mg/dL (74-106); PHOSPHORUS 4.2 mg/dL (2.7-4.5); POTASSIUM 3.6 mmol/L (3.5-5.1); SODIUM SERUM 144 mmol/L (136-145); UREA NITROGEN, BLOOD 11 mg/dL (8-21)
[2022-10-14] MEDS: NYSTATIN 15 GM TOPICAL POWDER TP SCH ×2 (09:00→22:37)
[2022-10-14] MEDS: QUEtiapine FUMARATE 25 MG TABLET PO SCH ×2 (09:15→21:00)
[2022-10-14] MEDS: predniSONE 5 MG TABLET PO SCH (09:15)
[2022-10-15] MEDS: D5/0.45 NS 1,000 ML IV SCH ×2 (01:50→08:45)
[2022-10-15] MEDS: ACYCLOVIR IV 500 MG in D5W 100 ML IV SCH ×2 (02:04→16:46)
[2022-10-15 02:37] VITALS: BP_SYST 133; PULSE 89; RESP 18; TEMP 97.9; O2SAT 95
[2022-10-15 02:40] VITALS: BP_SYST 129; PULSE 87; RESP 18; TEMP 97.7; O2SAT 97
[2022-10-15 04:43] LABS: BASOPHILS # (AUTO) 0.1 K/uL (0.0-0.2); BASOPHILS % (AUTO) 0.8 % (0.0-2.0); EOSINOPHILS # (AUTO) 0.1 K/uL (0.0-0.4); EOSINOPHILS % (AUTO) 1.3 % (0.0-4.0); HEMATOCRIT 31.9 % (36-54); HEMOGLOBIN 10.5 g/dL (14.0-18.0); LYMPHOCYTES # (AUTO) 2.4 K/uL (1.0-5.5); MEAN CORPUSCULAR HEMOGLOBIN 34 pg (27-31); MEAN CORPUSCULAR HGB CONC 33 % (32-36); MEAN CORPUSCULAR VOLUME 105 fL (79.0-98.0); MONOCYTES # (AUTO) 1.3 K/uL (0.0-1.0); MONOCYTES % (AUTO) 12.3 % (1.7-9.3); NEUTROPHILS # (AUTO) 6.5 K/uL (1.8-7.7); NEUTROPHILS % (AUTO) 62.6 % (40.0-70.0); PLATELET COUNT (AUTO) 133 K/uL (130-430); RED BLOOD CELL COUNT(AUTO) 3.05 MIL/uL (4.2-6.2); RED CELL DISTRIBUTION WIDTH 17.4 % (9.0-15.0); WHITE BLOOD COUNT (AUTO) 10.4 K/uL (4.8-10.8)
[2022-10-15 04:54] LABS: ERYTHROCYTE SEDIMENTATION RATE 38 MM/HR (0-15)
[2022-10-15 05:05] LABS: ALANINE AMINOTRANSFERASE 29 U/L (12-78); ALBUMIN 1.8 g/dL (3.4-4.8); ANION GAP 7 (5-15); ASPARTATE AMINOTRANSFERASE 53 U/L (10-37); CALCIUM 7.8 mg/dL (8.4-11.0); CARBON DIOXIDE 29 mmol/L (23-29); CHLORIDE 108 mmol/L (98-107); CREATININE 1.19 mg/dL (0.55-1.30); GLUCOSE 119 mg/dL (74-106); PHOSPHORUS 1.9 mg/dL (2.7-4.5); POTASSIUM 3.4 mmol/L (3.5-5.1); SODIUM SERUM 144 mmol/L (136-145); TOTAL BILIRUBIN 0.6 mg/dL (0.0-1.0); TOTAL PROTEIN, SERUM 5.6 g/dL (6.4-8.3); UREA NITROGEN, BLOOD 13 mg/dL (8-21)
[2022-10-15] MEDS: LEVOTHYROXINE SODIUM 0.05 MG TABLET PO SCH (07:00)
[2022-10-15 08:00] VITALS: BP_SYST 135; PULSE 94; RESP 18; TEMP 98.4; O2SAT 91
[2022-10-15] MEDS: QUEtiapine FUMARATE 25 MG TABLET PO SCH ×2 (09:00→21:59)
[2022-10-15] MEDS: NYSTATIN 15 GM TOPICAL POWDER TP SCH ×2 (09:00→22:00)
[2022-10-15] MEDS: predniSONE 5 MG TABLET PO SCH (09:54)
[2022-10-15 10:00] VITALS: BP_SYST 135; PULSE 94; O2SAT 95
[2022-10-15 14:45] VITALS: O2SAT 97
[2022-10-15 20:00] VITALS: BP_SYST 143; PULSE 90; RESP 18; TEMP 97.6; O2SAT 96; O2SAT 97
[2022-10-16] VITALS: BP_SYST 125; PULSE 98; RESP 18; TEMP 97.4; O2SAT 95
[2022-10-16] MEDS: ACYCLOVIR IV 500 MG in D5W 100 ML IV SCH ×2 (01:27→14:07)
[2022-10-16 05:23] LABS: BASOPHILS # (AUTO) 0.1 K/uL (0.0-0.2); BASOPHILS % (AUTO) 0.9 % (0.0-2.0); EOSINOPHILS # (AUTO) 0.1 K/uL (0.0-0.4); EOSINOPHILS % (AUTO) 0.6 % (0.0-4.0); HEMATOCRIT 31.5 % (36-54); HEMOGLOBIN 10.6 g/dL (14.0-18.0); LYMPHOCYTES # (AUTO) 1.9 K/uL (1.0-5.5); LYMPHOCYTES % (AUTO) 20.2 % (20.5-51.5); MEAN CORPUSCULAR HEMOGLOBIN 35 pg (27-31); MEAN CORPUSCULAR HGB CONC 34 % (32-36); MEAN CORPUSCULAR VOLUME 104 fL (79.0-98.0); MONOCYTES # (AUTO) 1.2 K/uL (0.0-1.0); MONOCYTES % (AUTO) 12.3 % (1.7-9.3); NEUTROPHILS # (AUTO) 6.3 K/uL (1.8-7.7); PLATELET COUNT (AUTO) 132 K/uL (130-430); RED BLOOD CELL COUNT(AUTO) 3.02 MIL/uL (4.2-6.2); RED CELL DISTRIBUTION WIDTH 17.7 % (9.0-15.0); WHITE BLOOD COUNT (AUTO) 9.5 K/uL (4.8-10.8)
[2022-10-16] MEDS: D5/0.45 NS 1,000 ML IV SCH (05:35)
[2022-10-16 05:56] LABS: ANION GAP 6 (5-15); CARBON DIOXIDE 27 mmol/L (23-29); CHLORIDE 108 mmol/L (98-107); GLUCOSE 83 mg/dL (74-106); POTASSIUM 3.7 mmol/L (3.5-5.1); SODIUM SERUM 141 mmol/L (136-145)
[2022-10-16 05:57] LABS: CALCIUM 8.1 mg/dL (8.4-11.0); CREATININE 1.31 mg/dL (0.55-1.30); UREA NITROGEN, BLOOD 14 mg/dL (8-21)
[2022-10-16] MEDS: LEVOTHYROXINE SODIUM 0.05 MG TABLET PO SCH (06:49)
[2022-10-16 08:21] VITALS: BP_SYST 138; PULSE 77; RESP 16; TEMP 98; O2SAT 94
[2022-10-16 08:30] VITALS: BP_SYST 144; PULSE 77; RESP 16; TEMP 98; O2SAT 98
[2022-10-16] MEDS: NYSTATIN 15 GM TOPICAL POWDER TP SCH ×2 (09:00→21:00)
[2022-10-16] MEDS: QUEtiapine FUMARATE 25 MG TABLET PO SCH ×2 (09:00→20:42)
[2022-10-16] MEDS: predniSONE 5 MG TABLET PO SCH (09:00)
[2022-10-16 11:01] VITALS: O2SAT 96
[2022-10-16 16:00] VITALS: BP_SYST 144; PULSE 68; RESP 16; TEMP 97.7; O2SAT 96
[2022-10-16 20:00] VITALS: BP_SYST 137; PULSE 71; RESP 18; TEMP 96.6; O2SAT 96
[2022-10-16] MEDS: NORMAL SALINE 5 ML DISP.SYRIN IVF SCH (22:33)
[2022-10-17] MEDS: D5/0.45 NS 1,000 ML IV SCH ×3 (00:19→18:15)
[2022-10-17 00:37] VITALS: BP_SYST 136; PULSE 72; RESP 16; TEMP 96.3
[2022-10-17] MEDS: ACYCLOVIR IV 500 MG in D5W 100 ML IV SCH (01:51)
[2022-10-17] MEDS: NORMAL SALINE 5 ML DISP.SYRIN IVF SCH ×3 (05:10→23:55)
[2022-10-17 07:27] LABS: BASOPHILS % (AUTO) 0.5 % (0.0-2.0); EOSINOPHILS # (AUTO) 0.1 K/uL (0.0-0.4); EOSINOPHILS % (AUTO) 1.4 % (0.0-4.0); HEMATOCRIT 34.2 % (36-54); HEMOGLOBIN 11.2 g/dL (14.0-18.0); LYMPHOCYTES # (AUTO) 2.4 K/uL (1.0-5.5); LYMPHOCYTES % (AUTO) 29.3 % (20.5-51.5); MEAN CORPUSCULAR HEMOGLOBIN 35 pg (27-31); MEAN CORPUSCULAR HGB CONC 33 % (32-36); MEAN CORPUSCULAR VOLUME 106 fL (79.0-98.0); MONOCYTES % (AUTO) 11.7 % (1.7-9.3); NEUTROPHILS # (AUTO) 4.7 K/uL (1.8-7.7); NEUTROPHILS % (AUTO) 57.1 % (40.0-70.0); PLATELET COUNT (AUTO) 150 K/uL (130-430); RED BLOOD CELL COUNT(AUTO) 3.23 MIL/uL (4.2-6.2); RED CELL DISTRIBUTION WIDTH 18.7 % (9.0-15.0); WHITE BLOOD COUNT (AUTO) 8.2 K/uL (4.8-10.8)
[2022-10-17 08:00] VITALS: BP_SYST 114; PULSE 78; RESP 16; TEMP 97.6; O2SAT 98
[2022-10-17 08:09] LABS: ANION GAP 7 (5-15); CALCIUM 8.2 mg/dL (8.4-11.0); CARBON DIOXIDE 29 mmol/L (23-29); CHLORIDE 108 mmol/L (98-107); GLUCOSE 84 mg/dL (74-106); POTASSIUM 3.6 mmol/L (3.5-5.1); SODIUM SERUM 144 mmol/L (136-145); UREA NITROGEN, BLOOD 15 mg/dL (8-21)
[2022-10-17] MEDS: predniSONE 5 MG TABLET PO SCH (11:10)
[2022-10-17] MEDS: QUEtiapine FUMARATE 25 MG TABLET PO SCH ×2 (11:10→23:54)
[2022-10-17] MEDS: LEVOTHYROXINE SODIUM 0.05 MG TABLET PO SCH (11:14)
[2022-10-17] MEDS: NYSTATIN 15 GM TOPICAL POWDER TP SCH ×2 (11:16→23:55)
[2022-10-17 12:00] VITALS: BP_SYST 118; PULSE 68; RESP 16; TEMP 98; O2SAT 98
[2022-10-17 13:47] VITALS: O2SAT 96
[2022-10-17 16:00] VITALS: BP_SYST 114; PULSE 76; RESP 14; TEMP 97.7; O2SAT 94
[2022-10-17 21:00] VITALS: BP_SYST 135; PULSE 79; RESP 16; TEMP 98.2; O2SAT 95
[2022-10-18] VITALS: O2SAT 95
[2022-10-18 01:00] VITALS: BP_SYST 131; PULSE 79; RESP 16; TEMP 97.6; O2SAT 95
[2022-10-18 05:16] LABS: BASOPHILS % (AUTO) 0.7 % (0.0-2.0); EOSINOPHILS # (AUTO) 0.1 K/uL (0.0-0.4); EOSINOPHILS % (AUTO) 1.7 % (0.0-4.0); HEMATOCRIT 33.3 % (36-54); LYMPHOCYTES # (AUTO) 1.5 K/uL (1.0-5.5); LYMPHOCYTES % (AUTO) 23.3 % (20.5-51.5); MEAN CORPUSCULAR HEMOGLOBIN 35 pg (27-31); MEAN CORPUSCULAR HGB CONC 33 % (32-36); MEAN CORPUSCULAR VOLUME 105 fL (79.0-98.0); MONOCYTES # (AUTO) 0.8 K/uL (0.0-1.0); MONOCYTES % (AUTO) 12.2 % (1.7-9.3); NEUTROPHILS % (AUTO) 62.1 % (40.0-70.0); PLATELET COUNT (AUTO) 110 K/uL (130-430); RED BLOOD CELL COUNT(AUTO) 3.18 MIL/uL (4.2-6.2); RED CELL DISTRIBUTION WIDTH 18.3 % (9.0-15.0); WHITE BLOOD COUNT (AUTO) 6.4 K/uL (4.8-10.8)
[2022-10-18] MEDS: D5/0.45 NS 1,000 ML IV SCH ×2 (06:04→21:57)
[2022-10-18] MEDS: LEVOTHYROXINE SODIUM 0.05 MG TABLET PO SCH (06:04)
[2022-10-18] MEDS: NORMAL SALINE 5 ML DISP.SYRIN IVF SCH ×3 (06:05→21:58)
[2022-10-18 06:10] LABS: ALANINE AMINOTRANSFERASE 32 U/L (12-78); ALBUMIN 1.8 g/dL (3.4-4.8); ANION GAP 6 (5-15); ASPARTATE AMINOTRANSFERASE 69 U/L (10-37); CALCIUM 7.6 mg/dL (8.4-11.0); CARBON DIOXIDE 28 mmol/L (23-29); CHLORIDE 110 mmol/L (98-107); CREATININE 1.15 mg/dL (0.55-1.30); GLUCOSE 94 mg/dL (74-106); PHOSPHORUS 2.7 mg/dL (2.7-4.5); SODIUM SERUM 144 mmol/L (136-145); TOTAL BILIRUBIN 0.8 mg/dL (0.0-1.0); TOTAL PROTEIN, SERUM 5.4 g/dL (6.4-8.3); UREA NITROGEN, BLOOD 11 mg/dL (8-21)
[2022-10-18 06:24] LABS: POTASSIUM 2.8 mmol/L (3.5-5.1)
[2022-10-18 08:30] VITALS: BP_SYST 134; PULSE 80; RESP 18; TEMP 97.3; O2SAT 97
[2022-10-18] MEDS: predniSONE 5 MG TABLET PO SCH (09:00)
[2022-10-18] MEDS: QUEtiapine FUMARATE 25 MG TABLET PO SCH (09:00)
[2022-10-18] MEDS: NYSTATIN 15 GM TOPICAL POWDER TP SCH ×2 (09:08→21:58)
[2022-10-18 10:23] VITALS: O2SAT 97
[2022-10-18 11:30] VITALS: BP_SYST 108; PULSE 85; RESP 18; TEMP 97.8; O2SAT 95
[2022-10-18] MEDS ORDERED: POTASSIUM CHLORIDE 40 MEQ in NS 250 ML IV ONE (12:15)
[2022-10-18] MEDS: KCL 20 mEq in 100 mL (PREMIX) 100 ML IV SCH ×2 (15:10→15:15)
[2022-10-18 17:17] VITALS: BP_SYST 103; PULSE 64; RESP 17; TEMP 98.1; O2SAT 94
[2022-10-18] MEDS ORDERED: DIPHENHYDRAMINE HCL 12.5 MG/5 ML UDC PO SCH (21:00)
[2022-10-19] VITALS: O2SAT 96
[2022-10-19 00:45] VITALS: BP_SYST 120; PULSE 67; RESP 18; TEMP 97; O2SAT 92
[2022-10-19 05:50] LABS: INR 1.2 (0.80-1.20); PROTHROMBIN TIME 12.7 SECS (9.5-12.5)
[2022-10-19 05:54] LABS: BASOPHILS # (AUTO) 0.1 K/uL (0.0-0.2); BASOPHILS % (AUTO) 0.7 % (0.0-2.0); EOSINOPHILS # (AUTO) 0.2 K/uL (0.0-0.4); EOSINOPHILS % (AUTO) 2.7 % (0.0-4.0); HEMATOCRIT 35.7 % (36-54); HEMOGLOBIN 11.8 g/dL (14.0-18.0); LYMPHOCYTES # (AUTO) 2.2 K/uL (1.0-5.5); LYMPHOCYTES % (AUTO) 28.4 % (20.5-51.5); MEAN CORPUSCULAR HEMOGLOBIN 35 pg (27-31); MEAN CORPUSCULAR HGB CONC 33 % (32-36); MEAN CORPUSCULAR VOLUME 106 fL (79.0-98.0); MONOCYTES % (AUTO) 13.4 % (1.7-9.3); NEUTROPHILS # (AUTO) 4.3 K/uL (1.8-7.7); NEUTROPHILS % (AUTO) 54.8 % (40.0-70.0); PLATELET COUNT (AUTO) 118 K/uL (130-430); RED BLOOD CELL COUNT(AUTO) 3.39 MIL/uL (4.2-6.2); RED CELL DISTRIBUTION WIDTH 18.5 % (9.0-15.0); WHITE BLOOD COUNT (AUTO) 7.8 K/uL (4.8-10.8)
[2022-10-19 06:10] LABS: ANION GAP 6 (5-15); CALCIUM 7.9 mg/dL (8.4-11.0); CARBON DIOXIDE 27 mmol/L (23-29); CHLORIDE 109 mmol/L (98-107); CREATININE 1.25 mg/dL (0.55-1.30); GLUCOSE 96 mg/dL (74-106); POTASSIUM 3.1 mmol/L (3.5-5.1); SODIUM SERUM 142 mmol/L (136-145); UREA NITROGEN, BLOOD 13 mg/dL (8-21)
[2022-10-19] MEDS: NORMAL SALINE 5 ML DISP.SYRIN IVF SCH (06:47)
[2022-10-19] MEDS: LEVOTHYROXINE SODIUM 0.05 MG TABLET PO SCH (06:47)
[2022-10-19] MEDS: D5/0.45 NS 1,000 ML IV SCH (06:47)
[2022-10-19] MEDS: predniSONE 5 MG TABLET PO SCH (08:19)
[2022-10-19] MEDS: NYSTATIN 15 GM TOPICAL POWDER TP SCH (08:20)
[2022-10-19 08:30] VITALS: BP_SYST 133; PULSE 86; RESP 16; TEMP 98.5; O2SAT 95
[2022-10-19 09:35] VITALS: O2SAT 95
[2022-10-19 11:44] VITALS: BP_SYST 133; PULSE 86; RESP 16; TEMP 98.5; O2SAT 95
[2022-10-19] MEDS ORDERED: SYN50 PO (11:56)
[2022-10-19] MEDS ORDERED: PRED5TAB PO (11:56)
[2022-10-19 13:54] VITALS: BP_SYST 102; PULSE 103; RESP 17; TEMP 98.2; O2SAT 99
[2022-10-20 16:06] LABS: WEST NILE VIRUS, IgG, SERUM Negative (Negative)
== END 2022-10-19 13:25 | DRG 97 ==
LOC: SED 20:25 → STU 10-02 02:22 → SMU 10-03 10:40
PROVIDERS: ADMIT Preventive Medicine Preventive Medicine/Occupational Environmental Medicine; ATTEND Specialist
PROC: 5A09357 Assistance with Respiratory Ventilation, Less than 24 Consecutive Hours, Continuous Positive Airway Pressure (ICD-10-PCS; principal; 2022-10-06)
DX: A86 Unspecified viral encephalitis (principal); G93.41 Metabolic encephalopathy; J96.01 Acute respiratory failure with hypoxia; N39.0 Urinary tract infection, site not specified; N17.9 Acute kidney failure, unspecified; E87.1 Hypo-osmolality and hyponatremia; C34.90 Malignant neoplasm of unspecified part of unspecified bronchus or lung; J44.1 Chronic obstructive pulmonary disease with (acute) exacerbation; R91.8 Other nonspecific abnormal finding of lung field; D64.9 Anemia, unspecified; R59.0 Localized enlarged lymph nodes; E83.52 Hypercalcemia; R74.01 Elevation of levels of liver transaminase levels; R73.9 Hyperglycemia, unspecified; N18.32 Chronic kidney disease, stage 3b; R13.10 Dysphagia, unspecified; E03.9 Hypothyroidism, unspecified; M06.9 Rheumatoid arthritis, unspecified; D69.6 Thrombocytopenia, unspecified; E87.6 Hypokalemia; M19.90 Unspecified osteoarthritis, unspecified site; Z87.442 Personal history of urinary calculi; Z68.25 Body mass index [BMI] 25.0-25.9, adult
CPT/HCPCS: 36415; 36600; 70450-TC; 71045; 71250-TC; 76376; 78580-TC; 80048; 80053; 80307; 81000; 82140; 82550; 82553; 82607; 82746; 82803; 82962; 83605; 83690; 83735; 83880; 84100; 84484; 85025; 85379; 85610-TC; 85651-TC; 85730-TC; 86788; 86789; 87040; 87081; 87086; 92610-GN; 93005; 93970; 94660; 94760; 96360; 97110-GP; 97116-GP; 97163-GP; 97530-GP; 99285; A9540; G0378; G0482; J0133; J0696; J2001; J2060; J2250; J2543; J3010; J3411; J3475; J3480; J7030; J7050; J7060; J7512; J8610; Q9967

== ENCOUNTER 2022-11-20 19:44 | Emergency (ER) | payer OTHER ==
[~2022-11-20] VITALS: Ht 170.2 cm; Wt 70.8 kg
[~2022-11-20 19:44] MED LIST: PRED5TAB PO; SYN50 PO
[2022-11-20 19:47] VITALS: BP_SYST 114; PULSE 125; RESP 20; TEMP 98.7; O2SAT 93
[2022-11-20] MEDS ORDERED: NACL 0.9% 1,000 ML IV ONE (21:00)
[2022-11-20 21:34] LABS: BASOPHILS % (AUTO) 0.4 % (0.0-2.0); EOSINOPHILS % (AUTO) 0.1 % (0.0-4.0); HEMATOCRIT 37.6 % (36-54); HEMOGLOBIN 12.5 g/dL (14.0-18.0); LYMPHOCYTES # (AUTO) 0.7 K/uL (1.0-5.5); LYMPHOCYTES % (AUTO) 7.4 % (20.5-51.5); MEAN CORPUSCULAR HEMOGLOBIN 35 pg (27-31); MEAN CORPUSCULAR HGB CONC 33 % (32-36); MEAN CORPUSCULAR VOLUME 105 fL (79.0-98.0); MONOCYTES % (AUTO) 9.6 % (1.7-9.3); NEUTROPHILS # (AUTO) 8.3 K/uL (1.8-7.7); NEUTROPHILS % (AUTO) 82.5 % (40.0-70.0); PLATELET COUNT (AUTO) 202 K/uL (130-430); RED BLOOD CELL COUNT(AUTO) 3.58 MIL/uL (4.2-6.2); RED CELL DISTRIBUTION WIDTH 14.9 % (9.0-15.0); WHITE BLOOD COUNT (AUTO) 10.1 K/uL (4.8-10.8)
[2022-11-20 21:43] LABS: ANION GAP 7 (5-15); CALCIUM 10.7 mg/dL (8.4-11.0); CARBON DIOXIDE 29 mmol/L (23-29); CHLORIDE 103 mmol/L (98-107); CREATININE 1.36 mg/dL (0.55-1.30); GLUCOSE 151 mg/dL (74-106); POTASSIUM 3.2 mmol/L (3.5-5.1); SODIUM SERUM 139 mmol/L (136-145); UREA NITROGEN, BLOOD 32 mg/dL (8-21)
[2022-11-20 21:45] LABS: INR 1.1 (0.80-1.20); PROTHROMBIN TIME 11.4 SECS (9.5-12.5)
[2022-11-20 21:50] LABS: ALANINE AMINOTRANSFERASE 24 U/L (12-78); ALBUMIN 2.2 g/dL (3.4-4.8); ASPARTATE AMINOTRANSFERASE 31 U/L (10-37); TOTAL BILIRUBIN 0.6 mg/dL (0.0-1.0); TOTAL PROTEIN, SERUM 6.3 g/dL (6.4-8.3)
[2022-11-20 22:09] LABS: BILIRUBIN,URINE NEGATIVE (NEGATIVE); CLARITY/URINE Clear (CLEAR); COLOR,URINE YELLOW (YELLOW); GLUCOSE,URINE NEGATIVE (NEGATIVE); KETONES,URINE NEGATIVE (NEGATIVE); LEUKOCYTE ESTERASE ,URINE NEGATIVE (NEGATIVE); NITRITE, URINE NEGATIVE (NEGATIVE); PROTEIN URINE NEGATIVE (NEGATIVE); UROBILINOGEN,URINE 0.2 (0.2-1.0)
[2022-11-20 22:11] LABS: BLOOD, URINE TRACE (NEGATIVE)
[2022-11-20 22:17] LABS: BACTERIA,URINE RARE /HPF (None Seen); MUCUS,URINE None Seen /LPF (None Seen); RBC,URINE 0-3 /HPF (0-3); WBC,URINE 0-3 /HPF (0-3)
[2022-11-20] MEDS ORDERED: cefTRIAXone 1 GM IVPB PREMIX 50 ML IV ONE (22:45)
[2022-11-20] MEDS ORDERED: AZITHROMYCIN 500 MG in NS 250 ML IV ONE (22:45)
[2022-11-20] MEDS ORDERED: AZITHROMYCIN 500 MG/VIAL (ZITHROMAX) IV ONE (23:01)
[2022-11-21] MEDS ORDERED: AMOX-423 PO (00:12)
[2022-11-21] MEDS ORDERED: LEVO750T64 PO (00:12)
[2022-11-21 00:56] VITALS: BP_SYST 113; PULSE 86; RESP 16; TEMP 98.9; O2SAT 92
== END 2022-11-21 00:51 | disposition home or self-care (01) ==
LOC: SED 19:44
DX: J18.1 Lobar pneumonia, unspecified organism (principal); C34.90 Malignant neoplasm of unspecified part of unspecified bronchus or lung; R41.82 Altered mental status, unspecified; R53.1 Weakness; E03.9 Hypothyroidism, unspecified; J44.9 Chronic obstructive pulmonary disease, unspecified; Z79.899 Other long term (current) drug therapy
CPT/HCPCS: 99285; 96365; 71045; 96361; 80053; 81000; 83880; 85025; 85610; 85730; 87040; 87086; 84484; 36415; 93005; 96368; 83605; J0456; J0696; J7030

== ENCOUNTER 2022-12-08 08:13 | Inpatient (IN) | payer OTHER ==
[~2022-12-08] VITALS: Ht 167.6 cm; Wt 68.5 kg
[~2022-12-08 08:13] MED LIST changes: +AMOX-423 PO; +LEVO750T64 PO
[2022-12-08 08:18] VITALS: BP_SYST 97; PULSE 107; RESP 22; TEMP 98.1; O2SAT 90
[2022-12-08] MEDS ORDERED: methylPREDNISolone SOD SUCC/PF 62.5 MG/ML VIAL IVP ONE (08:30)
[2022-12-08] MEDS ORDERED: cefTRIAXone 1 GM IVPB PREMIX 50 ML IV ONE (08:30)
[2022-12-08] MEDS ORDERED: IPRATROPIUM/ALBUTEROL SULFATE 3 ML AMPUL.NEB (DUONEB) INH ONE (08:30)
[2022-12-08] MEDS ORDERED: NACL 0.9% 1,000 ML IV ONE ×2 (08:45→10:00)
[2022-12-08 09:36] LABS: BASOPHILS # (AUTO) 0.1 K/uL (0.0-0.2); BASOPHILS % (AUTO) 0.3 % (0.0-2.0); EOSINOPHILS % (AUTO) 0.1 % (0.0-4.0); HEMATOCRIT 43.9 % (36-54); HEMOGLOBIN 14.1 g/dL (14.0-18.0); LYMPHOCYTES # (AUTO) 1.3 K/uL (1.0-5.5); LYMPHOCYTES % (AUTO) 5.7 % (20.5-51.5); MEAN CORPUSCULAR HEMOGLOBIN 34 pg (27-31); MEAN CORPUSCULAR HGB CONC 32 % (32-36); MEAN CORPUSCULAR VOLUME 107 fL (79.0-98.0); MONOCYTES # (AUTO) 1.4 K/uL (0.0-1.0); NEUTROPHILS # (AUTO) 19.8 K/uL (1.8-7.7); NEUTROPHILS % (AUTO) 87.9 % (40.0-70.0); PLATELET COUNT (AUTO) 182 K/uL (130-430); RED BLOOD CELL COUNT(AUTO) 4.11 MIL/uL (4.2-6.2); RED CELL DISTRIBUTION WIDTH 14.4 % (9.0-15.0); WHITE BLOOD COUNT (AUTO) 22.6 K/uL (4.8-10.8)
[2022-12-08 09:53] LABS: ALANINE AMINOTRANSFERASE 24 U/L (12-78); ALBUMIN 2.3 g/dL (3.4-4.8); ANION GAP 7 (5-15); ASPARTATE AMINOTRANSFERASE 34 U/L (10-37); CARBON DIOXIDE 33 mmol/L (23-29); CHLORIDE 108 mmol/L (98-107); CREATININE 2.59 mg/dL (0.55-1.30); GLUCOSE 97 mg/dL (74-106); POTASSIUM 4.4 mmol/L (3.5-5.1); SODIUM SERUM 148 mmol/L (136-145); TOTAL BILIRUBIN 0.7 mg/dL (0.0-1.0); TOTAL PROTEIN, SERUM 6.8 g/dL (6.4-8.3); UREA NITROGEN, BLOOD 52 mg/dL (8-21)
[2022-12-08 09:54] LABS: INR 1.2 (0.80-1.20); PROTHROMBIN TIME 12.1 SECS (9.5-12.5)
[2022-12-08 10:01] LABS: BILIRUBIN,URINE NEGATIVE (NEGATIVE); BLOOD, URINE 3+ (NEGATIVE); COLOR,URINE YELLOW (YELLOW); GLUCOSE,URINE NEGATIVE (NEGATIVE); KETONES,URINE NEGATIVE (NEGATIVE); LEUKOCYTE ESTERASE ,URINE TRACE (NEGATIVE); NITRITE, URINE NEGATIVE (NEGATIVE); PROTEIN URINE 1+ (NEGATIVE); UROBILINOGEN,URINE 0.2 (0.2-1.0)
[2022-12-08 10:06] LABS: CALCIUM 13.4 mg/dL (8.4-11.0)
[2022-12-08 10:22] LABS: CLARITY/URINE CLOUDY (CLEAR)
[2022-12-08 10:33] LABS: BACTERIA,URINE MODERATE /HPF (None Seen); RBC,URINE 20-50 /HPF (0-3)
[2022-12-08] MEDS ORDERED: D5W 1,000 ML IV SCH (11:30)
[2022-12-08] MEDS: NACL 0.9% 1,000 ML IV SCH (14:02)
[2022-12-08 18:10] LABS: ANION GAP 4 (5-15); CALCIUM 11.2 mg/dL (8.4-11.0); CARBON DIOXIDE 24 mmol/L (23-29); CHLORIDE 111 mmol/L (98-107); CREATININE 2.24 mg/dL (0.55-1.30); GLUCOSE 149 mg/dL (74-106); POTASSIUM 4.9 mmol/L (3.5-5.1); SODIUM SERUM 139 mmol/L (136-145); UREA NITROGEN, BLOOD 54 mg/dL (8-21)
[2022-12-08 21:30] VITALS: O2SAT 96
[2022-12-08 22:19] VITALS: BP_SYST 106; PULSE 68; RESP 17; TEMP 97.2
[2022-12-09] VITALS (11 sets, daily range): BP systolic 100–145; PULSE 61–88; RESP 16–20; TEMP 96.7–98.4; O2SAT 93–98
[2022-12-09] MEDS: NACL 0.9% 1,000 ML IV SCH ×5 (02:20→21:54)
[2022-12-09] MEDS: CALCITONIN SALMON,SYNTHETIC 200 UNITS/ML VIAL SUBCUT SCH (08:53)
[2022-12-09] MEDS ORDERED: FUROSEMIDE 40 MG/4 ML VIAL IVP SCH (09:00)
[2022-12-09 09:20] LABS: ALANINE AMINOTRANSFERASE 19 U/L (12-78); ALBUMIN 1.8 g/dL (3.4-4.8); ANION GAP 5 (5-15); ASPARTATE AMINOTRANSFERASE 36 U/L (10-37); CALCIUM 10.1 mg/dL (8.4-11.0); CARBON DIOXIDE 27 mmol/L (23-29); CHLORIDE 116 mmol/L (98-107); CREATININE 2.14 mg/dL (0.55-1.30); GLUCOSE 108 mg/dL (74-106); POTASSIUM 4.6 mmol/L (3.5-5.1); SODIUM SERUM 148 mmol/L (136-145); TOTAL BILIRUBIN 0.3 mg/dL (0.0-1.0); TOTAL PROTEIN, SERUM 5.4 g/dL (6.4-8.3); UREA NITROGEN, BLOOD 57 mg/dL (8-21)
[2022-12-09] MEDS ORDERED: ACETAMINOPHEN 325 MG TABLET PO PRN ×2 (10:30→10:45)
[2022-12-09] MEDS ORDERED: NALOXONE HCL 0.4 MG/ML AMP (NARCAN) IVP PRN ×2 (10:30)
[2022-12-09] MEDS ORDERED: HYDROcodone/ACETAMIN 5-325 MG TAB (NORCO/ VICODIN) PO PRN (10:30)
[2022-12-09] MEDS ORDERED: LORazepam 2 MG/ML VIAL IVP PRN (10:30)
[2022-12-09] MEDS ORDERED: HYDROcodone/ACETAMIN 10-325 MG TAB PO PRN (10:30)
[2022-12-09] MEDS ORDERED: cefTRIAXone 1 GM IVPB PREMIX 50 ML IV SCH (10:30)
[2022-12-09] MEDS ORDERED: ONDANSETRON HCL 4 MG/2 ML VIAL IVP PRN (10:30)
[2022-12-09] MEDS: ALBUTEROL SULFATE 0.083% 2.5 MG/3 ML VIAL.NEB INH SCH ×3 (11:09→19:37)
[2022-12-09] MEDS: IPRATROPIUM BROM 0.5 MG/2.5 ML VIAL.NEB (ATROVENT) INH SCH ×3 (11:09→19:37)
[2022-12-09] MEDS: CEFEPIME 2 GM in D5W 100 ML IV SCH (13:31)
[2022-12-09] MEDS: metroNIDAZOLE 500 mg/NS 100 ML IV SCH (21:54)
[2022-12-10] VITALS (8 sets, daily range): BP systolic 105–149; PULSE 67–113; RESP 18; TEMP 96.8–98.6; O2SAT 93–98
[2022-12-10] MEDS: ALBUTEROL SULFATE 0.083% 2.5 MG/3 ML VIAL.NEB INH SCH ×6 (03:00→23:34)
[2022-12-10] MEDS: IPRATROPIUM BROM 0.5 MG/2.5 ML VIAL.NEB (ATROVENT) INH SCH ×6 (03:00→23:34)
[2022-12-10] MEDS: NACL 0.9% 1,000 ML IV SCH ×2 (05:21→11:51)
[2022-12-10] MEDS: LEVOTHYROXINE SODIUM 0.05 MG TABLET PO SCH (06:49)
[2022-12-10 07:15] LABS: BASOPHILS % (AUTO) 0.1 % (0.0-2.0); HEMOGLOBIN 12.1 g/dL (14.0-18.0); LYMPHOCYTES # (AUTO) 0.7 K/uL (1.0-5.5); LYMPHOCYTES % (AUTO) 2.9 % (20.5-51.5); MEAN CORPUSCULAR HEMOGLOBIN 34 pg (27-31); MEAN CORPUSCULAR HGB CONC 32 % (32-36); MEAN CORPUSCULAR VOLUME 107 fL (79.0-98.0); MONOCYTES # (AUTO) 1.2 K/uL (0.0-1.0); MONOCYTES % (AUTO) 5.2 % (1.7-9.3); NEUTROPHILS # (AUTO) 21.2 K/uL (1.8-7.7); PLATELET COUNT (AUTO) 150 K/uL (130-430); RED BLOOD CELL COUNT(AUTO) 3.55 MIL/uL (4.2-6.2); RED CELL DISTRIBUTION WIDTH 14.4 % (9.0-15.0); WHITE BLOOD COUNT (AUTO) 23.1 K/uL (4.8-10.8)
[2022-12-10 07:40] LABS: ALANINE AMINOTRANSFERASE 21 U/L (12-78); ALBUMIN 1.8 g/dL (3.4-4.8); ANION GAP 8 (5-15); ASPARTATE AMINOTRANSFERASE 29 U/L (10-37); CALCIUM 8.8 mg/dL (8.4-11.0); CARBON DIOXIDE 25 mmol/L (23-29); CHLORIDE 119 mmol/L (98-107); CREATININE 1.75 mg/dL (0.55-1.30); GLUCOSE 96 mg/dL (74-106); PHOSPHORUS 3.2 mg/dL (2.7-4.5); POTASSIUM 3.5 mmol/L (3.5-5.1); SODIUM SERUM 152 mmol/L (136-145); TOTAL BILIRUBIN 0.5 mg/dL (0.0-1.0); TOTAL PROTEIN, SERUM 5.2 g/dL (6.4-8.3); UREA NITROGEN, BLOOD 51 mg/dL (8-21)
[2022-12-10 08:35] LABS: NEUTROPHILS % (AUTO) 91.8 % (40.0-70.0)
[2022-12-10] MEDS: predniSONE 5 MG TABLET PO SCH (09:52)
[2022-12-10] MEDS: CALCITONIN SALMON,SYNTHETIC 200 UNITS/ML VIAL SUBCUT SCH (09:52)
[2022-12-10] MEDS: metroNIDAZOLE 500 mg/NS 100 ML IV SCH ×2 (09:53→20:34)
[2022-12-10] MEDS: CEFEPIME 2 GM in D5W 100 ML IV SCH (13:04)
[2022-12-11] VITALS (9 sets, daily range): BP systolic 102–123; PULSE 96–108; RESP 17–18; TEMP 96–98; O2SAT 94–99
[2022-12-11] MEDS: 0.45% NACL 1,000 ML IV SCH ×3 (03:00→15:42)
[2022-12-11] MEDS: IPRATROPIUM BROM 0.5 MG/2.5 ML VIAL.NEB (ATROVENT) INH SCH ×6 (05:24→23:10)
[2022-12-11] MEDS: ALBUTEROL SULFATE 0.083% 2.5 MG/3 ML VIAL.NEB INH SCH ×6 (05:24→23:10)
[2022-12-11 05:26] LABS: BASOPHILS % (AUTO) 0.2 % (0.0-2.0); EOSINOPHILS % (AUTO) 0.1 % (0.0-4.0); HEMATOCRIT 39.5 % (36-54); HEMOGLOBIN 12.5 g/dL (14.0-18.0); LYMPHOCYTES % (AUTO) 6.6 % (20.5-51.5); MEAN CORPUSCULAR HEMOGLOBIN 34 pg (27-31); MEAN CORPUSCULAR HGB CONC 32 % (32-36); MEAN CORPUSCULAR VOLUME 108 fL (79.0-98.0); MONOCYTES % (AUTO) 6.2 % (1.7-9.3); NEUTROPHILS # (AUTO) 13.6 K/uL (1.8-7.7); NEUTROPHILS % (AUTO) 86.9 % (40.0-70.0); PLATELET COUNT (AUTO) 136 K/uL (130-430); RED BLOOD CELL COUNT(AUTO) 3.66 MIL/uL (4.2-6.2); RED CELL DISTRIBUTION WIDTH 14.7 % (9.0-15.0); WHITE BLOOD COUNT (AUTO) 15.6 K/uL (4.8-10.8)
[2022-12-11 05:35] LABS: ERYTHROCYTE SEDIMENTATION RATE 4 MM/HR (0-15)
[2022-12-11 05:53] LABS: ALANINE AMINOTRANSFERASE 23 U/L (12-78); ALBUMIN 1.8 g/dL (3.4-4.8); ANION GAP 7 (5-15); ASPARTATE AMINOTRANSFERASE 34 U/L (10-37); CALCIUM 8.6 mg/dL (8.4-11.0); CARBON DIOXIDE 27 mmol/L (23-29); CREATININE 1.67 mg/dL (0.55-1.30); GLUCOSE 93 mg/dL (74-106); POTASSIUM 4.6 mmol/L (3.5-5.1); SODIUM SERUM 157 mmol/L (136-145); TOTAL BILIRUBIN 0.5 mg/dL (0.0-1.0); TOTAL PROTEIN, SERUM 5.2 g/dL (6.4-8.3); UREA NITROGEN, BLOOD 38 mg/dL (8-21)
[2022-12-11 05:57] LABS: CHLORIDE 123 mmol/L (98-107)
[2022-12-11] MEDS: LEVOTHYROXINE SODIUM 0.05 MG TABLET PO SCH (07:00)
[2022-12-11] MEDS: predniSONE 5 MG TABLET PO SCH (09:04)
[2022-12-11] MEDS: CALCITONIN SALMON,SYNTHETIC 200 UNITS/ML VIAL SUBCUT SCH (09:05)
[2022-12-11] MEDS: metroNIDAZOLE 500 mg/NS 100 ML IV SCH ×2 (09:06→20:16)
[2022-12-11] MEDS: CEFEPIME 2 GM in D5W 100 ML IV SCH (12:38)
[2022-12-12] VITALS (10 sets, daily range): BP systolic 102–113; PULSE 78–92; RESP 17–18; TEMP 97.1–98; O2SAT 94–99
[2022-12-12] MEDS: 0.45% NACL 1,000 ML IV SCH ×3 (02:34→21:58)
[2022-12-12] MEDS: ALBUTEROL SULFATE 0.083% 2.5 MG/3 ML VIAL.NEB INH SCH ×6 (05:17→23:27)
[2022-12-12] MEDS: IPRATROPIUM BROM 0.5 MG/2.5 ML VIAL.NEB (ATROVENT) INH SCH ×6 (05:17→23:26)
[2022-12-12] MEDS: LEVOTHYROXINE SODIUM 0.05 MG TABLET PO SCH (06:09)
[2022-12-12 06:42] LABS: BASOPHILS % (AUTO) 0.1 % (0.0-2.0); EOSINOPHILS # (AUTO) 0.1 K/uL (0.0-0.4); EOSINOPHILS % (AUTO) 0.9 % (0.0-4.0); HEMATOCRIT 39.1 % (36-54); HEMOGLOBIN 12.4 g/dL (14.0-18.0); LYMPHOCYTES # (AUTO) 0.9 K/uL (1.0-5.5); LYMPHOCYTES % (AUTO) 6.9 % (20.5-51.5); MEAN CORPUSCULAR HEMOGLOBIN 34 pg (27-31); MEAN CORPUSCULAR HGB CONC 32 % (32-36); MEAN CORPUSCULAR VOLUME 107 fL (79.0-98.0); MONOCYTES # (AUTO) 0.8 K/uL (0.0-1.0); MONOCYTES % (AUTO) 6.3 % (1.7-9.3); NEUTROPHILS # (AUTO) 11.3 K/uL (1.8-7.7); NEUTROPHILS % (AUTO) 85.8 % (40.0-70.0); PLATELET COUNT (AUTO) 117 K/uL (130-430); RED BLOOD CELL COUNT(AUTO) 3.65 MIL/uL (4.2-6.2); RED CELL DISTRIBUTION WIDTH 14.5 % (9.0-15.0); WHITE BLOOD COUNT (AUTO) 13.2 K/uL (4.8-10.8)
[2022-12-12 07:12] LABS: ALANINE AMINOTRANSFERASE 20 U/L (12-78); ALBUMIN 1.6 g/dL (3.4-4.8); ANION GAP 9 (5-15); ASPARTATE AMINOTRANSFERASE 31 U/L (10-37); CARBON DIOXIDE 23 mmol/L (23-29); CHLORIDE 116 mmol/L (98-107); CREATININE 1.31 mg/dL (0.55-1.30); GLUCOSE 96 mg/dL (74-106); PHOSPHORUS 2.1 mg/dL (2.7-4.5); POTASSIUM 3.5 mmol/L (3.5-5.1); SODIUM SERUM 148 mmol/L (136-145); TOTAL BILIRUBIN 0.5 mg/dL (0.0-1.0); TOTAL PROTEIN, SERUM 4.8 g/dL (6.4-8.3); UREA NITROGEN, BLOOD 35 mg/dL (8-21)
[2022-12-12 07:50] LABS: ERYTHROCYTE SEDIMENTATION RATE 9 MM/HR (0-15)
[2022-12-12] MEDS: predniSONE 5 MG TABLET PO SCH (09:16)
[2022-12-12] MEDS: metroNIDAZOLE 500 mg/NS 100 ML IV SCH ×2 (09:16→21:59)
[2022-12-12] MEDS ORDERED: CALCIUM GLUC 2 GM/100ML-NACL 100 ML IV ONE (11:00)
[2022-12-12] MEDS: CEFEPIME 2 GM in D5W 100 ML IV SCH (11:21)
[2022-12-12] MEDS ORDERED: K PHOS 15 MM in NS 250 ML IV ONE (12:00)
[2022-12-13] VITALS (9 sets, daily range): BP systolic 96–133; PULSE 87–102; RESP 17–18; TEMP 97.7–98.6; O2SAT 94–96
[2022-12-13] MEDS: ALBUTEROL SULFATE 0.083% 2.5 MG/3 ML VIAL.NEB INH SCH ×6 (04:13→23:16)
[2022-12-13] MEDS: IPRATROPIUM BROM 0.5 MG/2.5 ML VIAL.NEB (ATROVENT) INH SCH ×6 (04:14→23:16)
[2022-12-13 05:44] LABS: ERYTHROCYTE SEDIMENTATION RATE 8 MM/HR (0-15)
[2022-12-13 06:00] LABS: BASOPHILS # (AUTO) 0.1 K/uL (0.0-0.2); EOSINOPHILS # (AUTO) 0.2 K/uL (0.0-0.4); EOSINOPHILS % (AUTO) 1.4 % (0.0-4.0); HEMATOCRIT 37.8 % (36-54); HEMOGLOBIN 12.2 g/dL (14.0-18.0); LYMPHOCYTES % (AUTO) 8.6 % (20.5-51.5); MEAN CORPUSCULAR HEMOGLOBIN 34 pg (27-31); MEAN CORPUSCULAR HGB CONC 32 % (32-36); MEAN CORPUSCULAR VOLUME 106 fL (79.0-98.0); MONOCYTES % (AUTO) 8.1 % (1.7-9.3); NEUTROPHILS # (AUTO) 9.9 K/uL (1.8-7.7); NEUTROPHILS % (AUTO) 80.9 % (40.0-70.0); PLATELET COUNT (AUTO) 115 K/uL (130-430); RED BLOOD CELL COUNT(AUTO) 3.56 MIL/uL (4.2-6.2); RED CELL DISTRIBUTION WIDTH 14.1 % (9.0-15.0); WHITE BLOOD COUNT (AUTO) 12.2 K/uL (4.8-10.8)
[2022-12-13 06:10] LABS: ALANINE AMINOTRANSFERASE 21 U/L (12-78); ALBUMIN 1.6 g/dL (3.4-4.8); ANION GAP 8 (5-15); ASPARTATE AMINOTRANSFERASE 35 U/L (10-37); CALCIUM 7.3 mg/dL (8.4-11.0); CARBON DIOXIDE 25 mmol/L (23-29); CHLORIDE 112 mmol/L (98-107); CREATININE 1.23 mg/dL (0.55-1.30); GLUCOSE 92 mg/dL (74-106); PHOSPHORUS 2.5 mg/dL (2.7-4.5); POTASSIUM 3.2 mmol/L (3.5-5.1); SODIUM SERUM 145 mmol/L (136-145); TOTAL BILIRUBIN 0.6 mg/dL (0.0-1.0); TOTAL PROTEIN, SERUM 4.6 g/dL (6.4-8.3); UREA NITROGEN, BLOOD 26 mg/dL (8-21)
[2022-12-13] MEDS: LEVOTHYROXINE SODIUM 0.05 MG TABLET PO SCH (07:00)
[2022-12-13] MEDS: VANCOMYCIN HCL ORAL SOLUTION 125 MG/5 ML, 150 ML GT SCH ×5 (09:00→21:03)
[2022-12-13] MEDS: metroNIDAZOLE 500 mg/NS 100 ML IV SCH ×2 (09:17→21:01)
[2022-12-13] MEDS: 0.45% NACL 1,000 ML IV SCH ×2 (09:24→16:30)
[2022-12-13] MEDS: CEFEPIME 2 GM in D5W 100 ML IV SCH (11:38)
[2022-12-13] MEDS: predniSONE 5 MG TABLET PO SCH (12:51)
[2022-12-14] VITALS (10 sets, daily range): BP systolic 112–125; PULSE 82–98; RESP 16–20; TEMP 97.7–98.6; O2SAT 92–99
[2022-12-14] MEDS: 0.45% NACL 1,000 ML IV SCH ×2 (02:26→12:33)
[2022-12-14] MEDS: IPRATROPIUM BROM 0.5 MG/2.5 ML VIAL.NEB (ATROVENT) INH SCH ×6 (03:09→23:18)
[2022-12-14] MEDS: ALBUTEROL SULFATE 0.083% 2.5 MG/3 ML VIAL.NEB INH SCH ×6 (03:10→23:18)
[2022-12-14 06:05] LABS: BASOPHILS % (AUTO) 0.2 % (0.0-2.0); EOSINOPHILS # (AUTO) 0.1 K/uL (0.0-0.4); EOSINOPHILS % (AUTO) 0.7 % (0.0-4.0); HEMATOCRIT 38.2 % (36-54); HEMOGLOBIN 12.2 g/dL (14.0-18.0); LYMPHOCYTES # (AUTO) 0.9 K/uL (1.0-5.5); LYMPHOCYTES % (AUTO) 6.2 % (20.5-51.5); MEAN CORPUSCULAR HEMOGLOBIN 33 pg (27-31); MEAN CORPUSCULAR HGB CONC 32 % (32-36); MEAN CORPUSCULAR VOLUME 105 fL (79.0-98.0); MONOCYTES # (AUTO) 1.2 K/uL (0.0-1.0); MONOCYTES % (AUTO) 8.7 % (1.7-9.3); NEUTROPHILS # (AUTO) 11.8 K/uL (1.8-7.7); NEUTROPHILS % (AUTO) 84.2 % (40.0-70.0); PLATELET COUNT (AUTO) 127 K/uL (130-430); RED BLOOD CELL COUNT(AUTO) 3.64 MIL/uL (4.2-6.2); RED CELL DISTRIBUTION WIDTH 14.3 % (9.0-15.0)
[2022-12-14] MEDS: LEVOTHYROXINE SODIUM 0.05 MG TABLET PO SCH (06:33)
[2022-12-14 07:11] LABS: ANION GAP 11 (5-15); CARBON DIOXIDE 23 mmol/L (23-29); CHLORIDE 112 mmol/L (98-107); CREATININE 1.13 mg/dL (0.55-1.30); GLUCOSE 77 mg/dL (74-106); POTASSIUM 3.5 mmol/L (3.5-5.1); SODIUM SERUM 146 mmol/L (136-145); UREA NITROGEN, BLOOD 22 mg/dL (8-21)
[2022-12-14 07:27] LABS: CALCIUM 6.9 mg/dL (8.4-11.0)
[2022-12-14] MEDS ORDERED: CALCIUM GLUCONATE 2 GM in NS 80 ML IV ONE (08:00)
[2022-12-14] MEDS: predniSONE 5 MG TABLET PO SCH (08:23)
[2022-12-14] MEDS: metroNIDAZOLE 500 mg/NS 100 ML IV SCH ×2 (08:23→20:37)
[2022-12-14] MEDS: VANCOMYCIN HCL ORAL SOLUTION 125 MG/5 ML, 150 ML GT SCH ×4 (08:24→20:38)
[2022-12-14] MEDS: CEFEPIME 2 GM in D5W 100 ML IV SCH (12:30)
[2022-12-15] VITALS (12 sets, daily range): BP systolic 117–125; PULSE 76–114; RESP 18–19; TEMP 97.6–99.3; O2SAT 90–97
[2022-12-15] MEDS: 0.45% NACL 1,000 ML IV SCH ×3 (02:51→17:45)
[2022-12-15] MEDS: IPRATROPIUM BROM 0.5 MG/2.5 ML VIAL.NEB (ATROVENT) INH SCH ×6 (03:00→23:23)
[2022-12-15] MEDS: ALBUTEROL SULFATE 0.083% 2.5 MG/3 ML VIAL.NEB INH SCH ×6 (03:00→23:23)
[2022-12-15] MEDS: LEVOTHYROXINE SODIUM 0.05 MG TABLET PO SCH (06:08)
[2022-12-15 06:14] LABS: BASOPHILS # (AUTO) 0.1 K/uL (0.0-0.2); BASOPHILS % (AUTO) 0.4 % (0.0-2.0); EOSINOPHILS # (AUTO) 0.3 K/uL (0.0-0.4); EOSINOPHILS % (AUTO) 2.1 % (0.0-4.0); HEMATOCRIT 38.1 % (36-54); HEMOGLOBIN 12.3 g/dL (14.0-18.0); LYMPHOCYTES # (AUTO) 1.3 K/uL (1.0-5.5); LYMPHOCYTES % (AUTO) 9.5 % (20.5-51.5); MEAN CORPUSCULAR HEMOGLOBIN 34 pg (27-31); MEAN CORPUSCULAR HGB CONC 32 % (32-36); MEAN CORPUSCULAR VOLUME 105 fL (79.0-98.0); MONOCYTES # (AUTO) 1.4 K/uL (0.0-1.0); MONOCYTES % (AUTO) 10.6 % (1.7-9.3); NEUTROPHILS # (AUTO) 10.2 K/uL (1.8-7.7); NEUTROPHILS % (AUTO) 77.4 % (40.0-70.0); PLATELET COUNT (AUTO) 132 K/uL (130-430); RED BLOOD CELL COUNT(AUTO) 3.62 MIL/uL (4.2-6.2); RED CELL DISTRIBUTION WIDTH 14.4 % (9.0-15.0); WHITE BLOOD COUNT (AUTO) 13.2 K/uL (4.8-10.8)
[2022-12-15 06:39] LABS: ANION GAP 8 (5-15); CALCIUM 8.1 mg/dL (8.4-11.0); CARBON DIOXIDE 25 mmol/L (23-29); CHLORIDE 110 mmol/L (98-107); CREATININE 1.11 mg/dL (0.55-1.30); GLUCOSE 79 mg/dL (74-106); POTASSIUM 3.5 mmol/L (3.5-5.1); SODIUM SERUM 143 mmol/L (136-145); UREA NITROGEN, BLOOD 20 mg/dL (8-21)
[2022-12-15] MEDS ORDERED: CEFE2FRO IV ×2 (08:06)
[2022-12-15] MEDS: metroNIDAZOLE 500 mg/NS 100 ML IV SCH (09:26)
[2022-12-15] MEDS: predniSONE 5 MG TABLET PO SCH (09:26)
[2022-12-15] MEDS: VANCOMYCIN HCL ORAL SOLUTION 125 MG/5 ML, 150 ML GT SCH ×4 (10:42→20:45)
[2022-12-15] MEDS: CEFEPIME 2 GM in D5W 100 ML IV SCH (13:39)
[2022-12-16] VITALS (7 sets, daily range): BP systolic 110–132; PULSE 76–107; RESP 17–18; TEMP 97.3–98.6; O2SAT 92–96
[2022-12-16] MEDS: IPRATROPIUM BROM 0.5 MG/2.5 ML VIAL.NEB (ATROVENT) INH SCH ×6 (03:00→22:28)
[2022-12-16] MEDS: ALBUTEROL SULFATE 0.083% 2.5 MG/3 ML VIAL.NEB INH SCH ×6 (03:00→22:28)
[2022-12-16] MEDS: LEVOTHYROXINE SODIUM 0.05 MG TABLET PO SCH (05:54)
[2022-12-16 06:54] LABS: BASOPHILS # (AUTO) 0.1 K/uL (0.0-0.2); BASOPHILS % (AUTO) 0.5 % (0.0-2.0); EOSINOPHILS # (AUTO) 0.1 K/uL (0.0-0.4); EOSINOPHILS % (AUTO) 0.9 % (0.0-4.0); HEMATOCRIT 36.6 % (36-54); HEMOGLOBIN 11.8 g/dL (14.0-18.0); LYMPHOCYTES # (AUTO) 0.8 K/uL (1.0-5.5); MEAN CORPUSCULAR HEMOGLOBIN 34 pg (27-31); MEAN CORPUSCULAR HGB CONC 32 % (32-36); MEAN CORPUSCULAR VOLUME 105 fL (79.0-98.0); MONOCYTES # (AUTO) 1.3 K/uL (0.0-1.0); MONOCYTES % (AUTO) 9.6 % (1.7-9.3); NEUTROPHILS # (AUTO) 11.2 K/uL (1.8-7.7); PLATELET COUNT (AUTO) 141 K/uL (130-430); RED BLOOD CELL COUNT(AUTO) 3.48 MIL/uL (4.2-6.2); RED CELL DISTRIBUTION WIDTH 14.2 % (9.0-15.0); WHITE BLOOD COUNT (AUTO) 13.6 K/uL (4.8-10.8)
[2022-12-16 06:58] LABS: INR 1.4 (0.80-1.20); PROTHROMBIN TIME 13.9 SECS (9.5-12.5)
[2022-12-16 07:57] LABS: ALANINE AMINOTRANSFERASE 21 U/L (12-78); ALBUMIN 1.6 g/dL (3.4-4.8); ANION GAP 7 (5-15); ASPARTATE AMINOTRANSFERASE 41 U/L (10-37); CALCIUM 8.4 mg/dL (8.4-11.0); CARBON DIOXIDE 25 mmol/L (23-29); CHLORIDE 111 mmol/L (98-107); CREATININE 1.06 mg/dL (0.55-1.30); GLUCOSE 104 mg/dL (74-106); POTASSIUM 3.2 mmol/L (3.5-5.1); SODIUM SERUM 143 mmol/L (136-145); TOTAL BILIRUBIN 0.4 mg/dL (0.0-1.0); TOTAL PROTEIN, SERUM 4.6 g/dL (6.4-8.3); UREA NITROGEN, BLOOD 22 mg/dL (8-21)
[2022-12-16] MEDS: VANCOMYCIN HCL ORAL SOLUTION 125 MG/5 ML, 150 ML GT SCH ×4 (08:58→20:45)
[2022-12-16] MEDS: predniSONE 5 MG TABLET PO SCH (08:58)
[2022-12-16] MEDS: 0.45% NACL 1,000 ML IV SCH (09:30)
[2022-12-16] MEDS ORDERED: LIDOCAINE 2%, 20 ML MDV ONE (09:49)
[2022-12-16] MEDS ORDERED: LIDOCAINE 2% JELLY UROJECT 10 ML MM ONE (09:50)
[2022-12-16] MEDS ORDERED: ROCURONIUM BROMIDE 10 MG/ML (ZEMURON) ONE (10:30)
[2022-12-16] MEDS ORDERED: SUGAMMADEX SODIUM 200 MG/2 ML VIAL IV ONE (10:30)
[2022-12-16] MEDS ORDERED: ETOMIDATE 20 MG/ 10 ML VIAL (AMIDATE) ONE (10:30)
[2022-12-17] VITALS (11 sets, daily range): BP systolic 114–127; PULSE 83–104; RESP 16–18; TEMP 96.6–98.7; O2SAT 91–99
[2022-12-17] MEDS: IPRATROPIUM BROM 0.5 MG/2.5 ML VIAL.NEB (ATROVENT) INH SCH ×4 (02:43→15:45)
[2022-12-17] MEDS: ALBUTEROL SULFATE 0.083% 2.5 MG/3 ML VIAL.NEB INH SCH ×4 (02:43→15:45)
[2022-12-17] MEDS: 0.45% NACL 1,000 ML IV SCH (04:51)
[2022-12-17] MEDS: LEVOTHYROXINE SODIUM 0.05 MG TABLET PO SCH (06:22)
[2022-12-17] MEDS ORDERED: POTASSIUM CHLORIDE 20 MEQ TAB.PRT.SR PO ONE (08:00)
[2022-12-17] MEDS ORDERED: COMMUNICATION ORDER XX ONE (09:15)
[2022-12-17] MEDS ORDERED: VANCOMYCIN HCL ORAL SOLUTION 125 MG/5 ML, 150 ML PO SCH (09:28)
[2022-12-17] MEDS: predniSONE 5 MG TABLET PO SCH (09:57)
[2022-12-17] MEDS ORDERED: DOXY100C5 PO (15:18)
[2022-12-17] MEDS ORDERED: VANC250C17 PO (15:18)
== END 2022-12-17 17:55 | disposition home or self-care (01) | DRG 853 ==
LOC: SED 08:13 → STU 10:58
PROVIDERS: ADMIT Preventive Medicine Preventive Medicine/Occupational Environmental Medicine; ATTEND Specialist
PROC: 0BBL8ZX Excision of Left Lung, Via Natural or Artificial Opening Endoscopic, Diagnostic (ICD-10-PCS; 2022-12-16 10:30)
PROC: 0B9M8ZX Drainage of Bilateral Lungs, Via Natural or Artificial Opening Endoscopic, Diagnostic (ICD-10-PCS; 2022-12-16 10:30)
PROC: 0W9B30Z Drainage of Left Pleural Cavity with Drainage Device, Percutaneous Approach (ICD-10-PCS; principal; 2022-12-17)
DX: A41.9 Sepsis, unspecified organism (principal); E43 Unspecified severe protein-calorie malnutrition; J96.01 Acute respiratory failure with hypoxia; G93.41 Metabolic encephalopathy; J18.9 Pneumonia, unspecified organism; N17.0 Acute kidney failure with tubular necrosis; E87.0 Hyperosmolality and hypernatremia; A04.72 Enterocolitis due to Clostridium difficile, not specified as recurrent; C34.90 Malignant neoplasm of unspecified part of unspecified bronchus or lung; J44.0 Chronic obstructive pulmonary disease with (acute) lower respiratory infection; N39.0 Urinary tract infection, site not specified; E87.3 Alkalosis; J91.8 Pleural effusion in other conditions classified elsewhere; R65.20 Severe sepsis without septic shock; E83.52 Hypercalcemia; E03.9 Hypothyroidism, unspecified; E83.39 Other disorders of phosphorus metabolism; N18.9 Chronic kidney disease, unspecified; D69.6 Thrombocytopenia, unspecified; D64.9 Anemia, unspecified; M19.90 Unspecified osteoarthritis, unspecified site; M06.9 Rheumatoid arthritis, unspecified; Z87.442 Personal history of urinary calculi; Z68.24 Body mass index [BMI] 24.0-24.9, adult; Z74.01 Bed confinement status
CPT/HCPCS: 32555; 36415; 71045; 71270-TC; 76376; 80048; 80053; 81000; 83605; 83735; 83880; 83970; 84100; 84484; 85025; 85379; 85610-TC; 85651-TC; 85730-TC; 87040; 87070-TC; 87081; 87086; 87230-TC; 88108; 88160; 88305; 92610-GN; 93005; 94640; 94760; 96361; 96365; 96375; 97110-GP; 97112-GP; 97116-GP; 97530-GP; 99291; G0378; J0610; J0630; J0692; J0696; J2001; J2060; J2930; J3490; J7050; J7060; J7512; Q9967